=== PATIENT | female | born 1955 | race Caucasian/White ===

== ENCOUNTER 2017-12-01 21:57 | Inpatient (IN) ==
[2017-12-02] MEDS: *HR* OxyCODONE/APAP 10/325 TABLET PO PRN ×5 (01:04→22:11)
--- NOTE | 2017-12-02 01:14 | Internal Med History&Physical ---
Date of Encounter: 12/02/17 Time of Encounter: 00:57 Assessment and Plan (1) Fracture, intertrochanteric, left femur Current visit: Yes Status: Acute Dr Chapa was consulted, will have surgery today NPO Qualifiers: Encounter type: initial encounter Fracture type: closed Fracture alignment: displaced Qualified Code(s): S72.142A - Displaced intertrochanteric fracture of left femur, initial encounter for closed fracture (2) Pre-op evaluation Current visit: Yes Status: Acute 1. pre-op cardaic assessment: Patient has history of insulin-dependent diabetes and end-stage renal disease CHF with EF 50%, but she denies chest pain shortness of breasts was exertion. She had echocardiogram back to September 2015 shows EF 50% with mild LVH. Her revised cardiac risk index score 3, She is at risk of 5.4% for adverse cardiac events. Patient CHF is well compensated. We will reduce IV fluids late give a dose of Lasix due to hyperkalmeia 2. chronic hypoxic respiratory failure on 2 L nasal cannula at home. Patient denies history of smoking, no COPD history, likely for chronic CHF. Continue monitoring monitor O2 saturation preoperatively. 3. Hyperkalemia from end-stage renal disease, will give IV Lasix in the Will repeat in a.m. 4. Chest x-ray shows mild pleural effusion, EKG is pending (3) ESRD (end stage renal disease) Current visit: Yes Status: Acute Consult a administrative and program specialist for dialysis on Sunday (4) Chronic respiratory failure with hypoxia Current visit: Yes Status: Acute On 2 L nasal cannula for CHF (5) Diabetes mellitus Current visit: Yes Status: Acute Patient has insulin-dependent diabetes, will continue home insulin and on sliding scale Qualifiers: Diabetes mellitus type: type 2 Diabetes mellitus residential insulin use: with residential use Diabetes mellitus complication status: with other specified complication Qualified Code(s): E11.69 - Type 2 diabetes mellitus with other specified complication; Z79.4 - custodial (current) use of insulin; Z79.4 - moth exterminator (current) use of insulin; Z79.4 - custodial (current) use of insulin; Z79.4 - custodial (current) use of insulin (6) Hypertension Current visit: Yes Status: Acute Qualifiers: Hypertension type: essential hypertension Qualified Code(s): I10 - Essential (primary) hypertension (7) CHF (congestive heart failure) Current visit: Yes Status: Acute EF 50% 09/2015, currently denies paroxysmal nocturnal dyspnea, no JVD. We will compensated. Qualifiers: Heart failure type: combined systolic and diastolic Heart failure chronicity: chronic Qualified Code(s): I50.42 - Chronic combined systolic ( congestive) and diastolic (congestive) heart failure Internal Medicine - H&P: HPI Chief complaint: left hip fracture Admitted From: Home Plans for Post Hospital Care: [facility] History of present illness: Ms. Naqvi is a 62 year old female who has history of diabetes hypertension end-stage renal disease on dialysis Sunday. she presented to [place] to ER for left hip pain after fall. Patient has balance issues, walks with a cane, she lost of balance while she is walking from the kitchen to the family room, fell on the left side the hip at 5 PM yesterday afternoon. She denies loss of consciousness denies chest pain shortness of breath. She developed acute pain from left hip after fall, sharp, 10 out of 10, constant. She called her daughter and her daughter called EMS when EMS unreliable she was sitting in the floor complains left hip pain 10 out of 10 unable to stand, in the emergency room she was found left femoral neck fracture. Dr. Chapa was called and transferred to [facility] for surgery treatment today. Lab shows creatinine 5.4 to potassium 5.3, she is on 2 L nasal cannula for CHF. She has been making urine daily. Patient is admitted for left hip fracture, NPO. Past Med Surg Social Fam HX - Past Medical History Medical history: cancer, diabetes, dialysis, hypertension, renal disease Psychiatric history: no psych history - Social History Smoking Status: Never smoker Smokeless Tobacco Status: No Alcohol use: none Drug use: none - Family History Mother Adopted: [place]: Padmini Mujica Age: 63 Family Member Ethnicity: Non- Living Status: Age at : 63 Cause of : Heart issues Hx Family Cardiac Disorders: Yes (unknown) Hx Family Respiratory Disorders: Yes (COPD) Hx Family Cancer: No Hx Family GI Disorders: No Hx Family Genitourinary Disorders: No Hx Family Endocrine Disorder: Yes (DM) Hx Family Musculoskeletal Disorders: No Hx Family Neuromuscular Disorders: No Hx Family Neurologic Disorders: No Hx Family HEENT Disorders: No Hx Family Autoimmune Disorders: No Hx Family Reproductive Disorders: No Hx Family Psychosocial Disorders: No Hx Family Medical Disorders: No Internal Medicine - H&P: Meds RX: Aspirin Enteric Coated [Aspirin EC] 81 mg PO DAILY 05/21/15 [History] RX: Carvedilol [Coreg] 25 mg PO BID 05/21/15 [History] RX: Hydralazine HCl 50 mg PO TID 05/21/15 [History] RX: Insulin ASPART [NovoLOG] 0 unit SQ TIDWM MDD per sliding scale 05/21/15 [ History] RX: Isosorbide MONOnitrate [Isosorbide Mononitrate] 30 mg PO DAILY 05/21/15 [ History] RX: Ondansetron [Zofran] 8 mg PO TID PRN 05/21/15 [History] RX: OxyCODONE/APAP 5/325 [Percocet 5/325] 1 each PO Q6HR PRN 05/21/15 [History] RX: Pantoprazole Sodium 40 mg PO DAILY 05/21/15 [History] RX: Torsemide [Demadex] 20 mg PO DAILY 05/21/15 [History] RX: Sevelamer [Renvela] 800 mg PO TID 02/07/17 [History] 3 Allergy/AdvReac Type Severity Reaction Status Date / Time acetaminophen [From Vicodin] Allergy Itching Verified 02/07/17 12:32 hydrocodone [From Vicodin] Allergy Itching Verified 02/07/17 12:32 Warfarin [From Coumadin] AdvReac bleeding Verified 02/07/17 12:32 All Systems PM: A 10-system review of systems was performed and is negative for pertinent findings except as documented above in the HPI. - Constitutional Vitals: Temp Pulse Resp BP Pulse Ox 99.2 F 89 17 192/85 100 12/01/17 23:56 12/01/17 23:56 12/01/17 23:56 12/01/17 23:56 12/01/17 23:56 General appearance: Present: A&O X 3, pleasant Exam: CONSTITUTIONAL: Patient appears as an age appropriate female well developed, in no acute distress. EYES Clear sclerae, bilateral pupils are equal, reactive to light and accommodation. Extraocular movements are intact RESPIRATORY: No accessory muscle use, bilateral clear to auscultation, no wheezing, no crackles/rales. CARDIOVASCULAR: Regular heart rate, normal S1 and S2, no murmurs GASTROINTESTINAL: bowel sounds present, soft, no tenderness. No hepatosplenomegaly. No bilateral CVA tenderness MUSCULOSKELETAL: Joints in normal range of motion, no clubbing, no edema, no cyanosis. Bilateral peripheral pulses 2+ LYMPHATIC no lymphadenopathy in neck, groin and axilla bilaterally, no thyromegaly. NEUROLOGIC: CN II to XII are grossly intact, no focal neurological deficit. Deep tendon reflexes 2+ bilaterally. Normal light touch sensation to upper and lower extremity PSYCHIATRIC: Oriented x3, with good insight, mood is euthymic. No hallucinations or delusions. SKIN: Skin warm and dry, no rashes, no open wound.
[2017-12-02] MEDS ORDERED: Naloxone 0.4 MG/ML INJ IVP PRN (01:34)
[2017-12-02] MEDS ORDERED: 0.9 % Sodium Chloride 1,000 ML IVC SCH (01:45)
[2017-12-02] MEDS: Insulin LISPRO 300 UNITS/3 ML VIAL SQ SCH ×5 (02:01→22:11)
[2017-12-02] MEDS: Furosemide 40 MG/4 ML VIAL IVP SCH ×3 (02:13→20:28)
[2017-12-02] MEDS: *HR* Heparin 5,000 UNIT/ML VIAL SQ SCH ×2 (05:11→17:15)
[2017-12-02 06:02] LABS: Basophils % 0.7 %; Hematocrit 37.1 % (35.3-44.9); Hemoglobin 11.1 g/dL (11.5-15.4); Immature Granulocytes % 0.2 % (0-4); Mean Corpuscular HGB Conc 29.9 g/dL (31.6-35.5)
[2017-12-02 06:03] LABS: Eosinophils # 0.2 K/mcL (0.0-0.6); Eosinophils % 3.9 %; Immature Platelets 4.8 % (1.1-6.1); Lymphocytes # 0.8 K/mcL (0.6-4.6); Lymphocytes % 18.9 %; Mean Corpuscular Hemoglobin 29.8 pg (28.0-33.3); Mean Corpuscular Volume 99.5 fL (83.0-100.0); Mean Platelet Volume 12.1 fL (9.4-12.4); Monocytes # 0.3 K/mcL (0.0-1.3); Red Blood Count 3.73 M/mcL (3.82-4.97); Red Cell Distribution Width 14.9 % (11.5-14.5); Segmented Neutrophils % 70.3 %
[2017-12-02 06:05] LABS: Platelet Count 66 K/mcL (140-400)
[2017-12-02 06:21] LABS: Platelet Estimate Decreased (Normal); Reactive Lymphocytes Present (Not Present)
[2017-12-02 06:29] LABS: Potassium 4.9 mEq/L (3.5-5.1)
[2017-12-02] MEDS ORDERED: D5% in 0.45% NACL 1,000 ML IVC SCH (06:45)
--- NOTE | 2017-12-02 09:17 | Orthopedic Consult Note ---
Date of Encounter: 12/02/17 Time of Encounter: 09:15 Assessment and Plan (1) Intertrochanteric fracture of left hip Current Visit: Yes Status: Acute Discussed with the patient that I recommend doing a left hip intramedullary nailing. The risks, benefits and alternatives were discussed. Informed consent was obtained. Qualifiers: Encounter type: initial encounter Fracture type: closed Fracture alignment: nondisplaced Qualified Code(s): S72.145A - Nondisplaced intertrochanteric fracture of left femur, initial encounter for closed fracture History of Present Illness Chief complaint: Left hip pain HPI: Ms. Naqvi is a 62 year old female who lives at home and is a community ambulator. The patient was walking down a ramp between his living room kitchen last night, when she pivoted to walk back up the ramp, lost balance falling onto her left side. The patient denies dizziness prior to fall, and denies loss of consciousness after the fall. Patient's past medical history significant for end-stage renal disease on dialysis. She was last dialyzed on Sunday. Past Med Surg Social Fam HX - Past Medical History Medical history: cancer, diabetes, dialysis, hypertension, renal disease Psychiatric history: no psych history - Social History Smoking Status: Never smoker Smokeless Tobacco Status: No Alcohol use: none Drug use: none - Family History Mother Adopted: [place]: Padmini Mujica Age: 63 Family Member Ethnicity: Non- Living Status: Age at : 63 Cause of : Heart issues Hx Family Cardiac Disorders: Yes (unknown) Hx Family Respiratory Disorders: Yes (COPD) Hx Family Cancer: No Hx Family GI Disorders: No Hx Family Genitourinary Disorders: No Hx Family Endocrine Disorder: Yes (DM) Hx Family Musculoskeletal Disorders: No Hx Family Neuromuscular Disorders: No Hx Family Neurologic Disorders: No Hx Family HEENT Disorders: No Hx Family Autoimmune Disorders: No Hx Family Reproductive Disorders: No Hx Family Psychosocial Disorders: No Hx Family Medical Disorders: No Medications and Allergies Aspirin Enteric Coated [Aspirin EC] 81 mg PO DAILY 05/21/15 [History] Carvedilol [Coreg] 25 mg PO BID 05/21/15 [History] Insulin ASPART [NovoLOG] 3 - 7 unit SQ TIDWM MDD per sliding scale 05/21/15 [ History] Ondansetron [Zofran] 8 mg PO TID PRN 05/21/15 [History] OxyCODONE/APAP 5/325 [Percocet 5/325] 1 each PO Q6HR PRN 05/21/15 [History] Pantoprazole Sodium 40 mg PO DAILY 05/21/15 [History] Torsemide [Demadex] 20 mg PO DAILY 05/21/15 [History] Sevelamer [Renvela] 1,600 mg PO TIDWM 02/07/17 [History] 3 Allergy/AdvReac Type Severity Reaction Status Date / Time acetaminophen [From Vicodin] Allergy Itching Verified 02/07/17 12:32 heparin Allergy See Verified 12/02/17 10:52 Comments hydrocodone [From Vicodin] Allergy Itching Verified 02/07/17 12:32 All Systems Reviewed: The remainder of the systems were reviewed and are negative Physical Exam - Constitutional Vitals: Temp Pulse Resp BP Pulse Ox 98.3 F 77 15 164/79 100 12/02/17 07:05 12/02/17 07:05 12/02/17 07:05 12/02/17 07:05 12/02/17 08:27 General appearance IM: A&O X 3, pleasant, no acute distress, answers questions appropriately Exam: Head normocephalic/atraumatic Neck supple, nontender Bilateral upper extremities: Normal range of motion, no bruising no tenderness. Patient has AV fistula and left antecubital fossa with positive thrill. Right lower extremity: Normal exam with normal range of motion Left lower extremity: Shortened externally rotated, positive tenderness and groin region, painful range of motion of the hip, patient able to dorsiflex and plantarflex the ankle and toes, 2 toes amputated, dorsalis pedis pulses 2+, sensation was intact Results - Labs Result Diagrams: 12/02/17 04:56 12/02/17 04:56 Labs: Abnormal lab results RBC 3.73 M/mcL (3.82-4.97) L 12/02/17 04:56 Hgb 11.1 g/dL (11.5-15.4) L 12/02/17 04:56 MCHC 29.9 g/dL (31.6-35.5) L 12/02/17 04:56 RDW 14.9 % (11.5-14.5) H 12/02/17 04:56 Plt Count 66 K/mcL (140-400) L 12/02/17 04:56 Reactive Lymphocytes Present (Not Present) A 12/02/17 04:56 Platelet Estimate Decreased (Normal) L 12/02/17 04:56 BUN 60 mg/dL (8-23) H 12/02/17 04:56 Creatinine 5.36 mg/dL (0.60-1.20) H 12/02/17 04:56 Est GFR ( Amer) 10 (> 60) L 12/02/17 04:56 Est GFR (Non-Af Amer) 8 (> 60) L 12/02/17 04:56 Glucose 121 mg/dL (70-105) H 12/02/17 04:56 POC Glucose 104 (58-89) H 12/02/17 06:16 Calculated Osmolality 302 (280-300) H 12/02/17 04:56 B-Natriuretic Peptide 318 pg/mL (Less than 100) H 12/02/17 04:56 H & H 12/02/17 Range/Units 04:56 Hgb 11.1 L (11.5-15.4) g/dL Hct 37.1 (35.3-44.9) % All other labs normal. - Diagnostic results Hip x-ray: image reviewed (Left hip intertrochanteric fracture) Consult Discharge Plan - Plan Referrals: Juan Daniel Conklin MD [Primary Care Provider] -
[2017-12-02] MEDS: Isosorbide MONOnitrate (24 HR) 30 MG TAB.ER.24H PO SCH (10:15)
--- NOTE | 2017-12-02 11:01 | Nephrology Consult Note ---
Date of Encounter: 12/02/17 Time of Encounter: 10:20 Assessment and Plan (1) ESRD (end stage renal disease) Current Visit: Yes Status: Chronic ESRD on HD M/W/ with next HD tentatively planned for tomorrow AM. No urgent needs for HD today. Mitchell plan for HD on Sunday. (2) History of hyperkalemia Current Visit: Yes Status: Chronic 4.9, so acceptable today. Whenever her diet is advanced, please make sure that it is a low potassium (i.e. Renal) diet. (3) Hypoalbuminemia Current Visit: Yes Status: Chronic Hx of chronic hypoalbuminemia: would recommend adding protein shakes such as Nephro with each meal. (4) Anemia of chronic renal failure, stage 5 Current Visit: Yes Status: Chronic Goal Hgb 10-11. Will monitor. (5) Fracture, intertrochanteric, left femur Current Visit: Yes Status: Acute Appreciate surgery. Qualifiers: Encounter type: initial encounter Fracture type: closed Fracture alignment: displaced Qualified Code(s): S72.142A - Displaced intertrochanteric fracture of left femur, initial encounter for closed fracture (6) Hypertension Current Visit: Yes Status: Chronic Qualifiers: Hypertension type: essential hypertension Qualified Code(s): I10 - Essential (primary) hypertension History of Present Illness - Reason for Consult Consult date: 12/02/17 end stage renal disease Requesting physician: Keagan Roper - Chief Complaint ESRD - History of Present Illness Josi Naqvi is an extremely pleasant and kind 62 y/o female with a pmh of DM, HTN, ESRD on HD M/W/, frequent hyperkalemia, prior pleural effusions, and et al who presented with a left hip fracture. I am her primary rn documentation specialist. She last completed on HD on Sunday, she and her two daughters affirmed. She was recently , but her before he had made a ramp from her room into the kitchen, and she said that yesterday, she lost her balance and fell from standing height. She did not affirm N/V/D or dysuria or chest pain. She said that she was breathing comfortably. She said that she had not yet eating this AM, since she was going for hip surgery today (Sunday). Past Med Surg Social Fam HX - Past Medical History Medical history: cancer, diabetes, dialysis, hypertension, renal disease Psychiatric history: no psych history - Social History Smoking Status: Never smoker Smokeless Tobacco Status: No Alcohol use: none Drug use: none - Family History Mother Adopted: [place]: Padmini Mujica Age: 63 Family Member Ethnicity: Non- Living Status: Age at : 63 Cause of : Heart issues Hx Family Cardiac Disorders: Yes (unknown) Hx Family Respiratory Disorders: Yes (COPD) Hx Family Cancer: No Hx Family GI Disorders: No Hx Family Genitourinary Disorders: No Hx Family Endocrine Disorder: Yes (DM) Hx Family Musculoskeletal Disorders: No Hx Family Neuromuscular Disorders: No Hx Family Neurologic Disorders: No Hx Family HEENT Disorders: No Hx Family Autoimmune Disorders: No Hx Family Reproductive Disorders: No Hx Family Psychosocial Disorders: No Hx Family Medical Disorders: No Medications and Allergies Aspirin Enteric Coated [Aspirin EC] 81 mg PO DAILY 05/21/15 [History] Carvedilol [Coreg] 25 mg PO BID 05/21/15 [History] Insulin ASPART [NovoLOG] 3 - 7 unit SQ TIDWM MDD per sliding scale 05/21/15 [ History] Ondansetron [Zofran] 8 mg PO TID PRN 05/21/15 [History] OxyCODONE/APAP 5/325 [Percocet 5/325] 1 each PO Q6HR PRN 05/21/15 [History] Pantoprazole Sodium 40 mg PO DAILY 05/21/15 [History] Torsemide [Demadex] 20 mg PO DAILY 05/21/15 [History] Sevelamer [Renvela] 1,600 mg PO TIDWM 02/07/17 [History] 3 Allergy/AdvReac Type Severity Reaction Status Date / Time acetaminophen [From Vicodin] Allergy Itching Verified 02/07/17 12:32 heparin Allergy See Verified 12/02/17 10:52 Comments hydrocodone [From Vicodin] Allergy Itching Verified 02/07/17 12:32 Review of Systems All Systems: reviewed and no additional remarkable complaints except as stated Exam - Vital Signs Vital signs: Initial Vital Signs Temp Pulse Resp BP Pulse Ox 99.2 F 89 17 192/85 100 12/01/17 23:56 12/01/17 23:56 12/01/17 23:56 12/01/17 23:56 12/01/17 23:56 Vital Signs - Last 8 Hours Temp Pulse Resp BP Pulse Ox 12/02/17 10:42 98.1 F 72 18 165/82 100 12/02/17 08:27 100 12/02/17 07:05 98.3 F 77 15 164/79 100 12/02/17 04:20 98.5 F 82 16 169/83 100 Intake and Output 12/01/17 12/02/17 12/02/17 23:59 07:59 15:59 Intake Total 0 / 0 Output Total 125 / 125 125 / 125 Balance -125 / -125 -125 / -125 Intake: Oral 0 / 0 Output: Catheter 125 / 125 125 / 125 Other: Weight 75.8 kg Blood Glucose* 104 93 Patient Weight 12/02/17 23:59 Weight 75.8 kg - General Appearance General appearance: well-developed, well-nourished, appears started age, chronically ill EENT: ATNC, PERRL, mucous membranes moist Neck: supple Respiratory: clear (but slightly diminished in the bases) Cardiology: no edema, regular rate, regular rhythm, normal S1, normal S2 - Dialysis Access Dialysis Vascular Access: Arteriovenous Fistula (left) thrill: Yes bruit: Yes Gastrointestinal: normoactive bowel sounds, no tenderness Integumentary: warm and dry Neurologic: no focal deficit, no asterixis, alert and oriented x3 Psychiatric: mood/affect appropriate, cooperative Results - Lab Results 12/02/17 04:56 12/02/17 04:56 Most recent lab results Calcium 9.0 mg/dL (8.6-10.3) 12/02/17 04:56 I reviewed the labs, meds, vitals, imaging and progress notes. Consult Discharge Plan - Plan Referrals: Juan Daniel Conklin MD [Primary Care Provider] -
[2017-12-02] MEDS ORDERED: ROPIVACAINE HCL/PF 0.5% 30 ML VIAL ONE ×2 (12:25→12:31)
--- NOTE | 2017-12-02 12:28 | Anesthesia Evaluation PreOp ---
Date of Encounter: 12/02/17 Time of Encounter: 12:25 - Past History Planned Operation: Left Hip Nailing Cardiac History: HTN, Hyperlipidemia, Other (Anemia of chronic disease) Pulmonary History: COPD CREDIT CARD ANALYST History: Denies Any Significant HX Other Medical History: Renal (ESRD last dialyzed 2 days ago), Diabetes Type II Anesthesia History: No Prior Anesthetic Complications : No Alcohol Use: none Drug use: none Medications and Allergies Aspirin Enteric Coated [Aspirin EC] 81 mg PO DAILY 05/21/15 [History] Carvedilol [Coreg] 25 mg PO BID 05/21/15 [History] Insulin ASPART [NovoLOG] 3 - 7 unit SQ TIDWM MDD per sliding scale 05/21/15 [ History] Ondansetron [Zofran] 8 mg PO TID PRN 05/21/15 [History] OxyCODONE/APAP 5/325 [Percocet 5/325] 1 each PO Q6HR PRN 05/21/15 [History] Pantoprazole Sodium 40 mg PO DAILY 05/21/15 [History] Torsemide [Demadex] 20 mg PO DAILY 05/21/15 [History] Sevelamer [Renvela] 1,600 mg PO TIDWM 02/07/17 [History] 3 Allergy/AdvReac Type Severity Reaction Status Date / Time acetaminophen [From Vicodin] Allergy Itching Verified 02/07/17 12:32 heparin Allergy See Verified 12/02/17 10:52 Comments hydrocodone [From Vicodin] Allergy Itching Verified 02/07/17 12:32 - Meds/Allergy Pre-op Review Medications Reviewed: Yes Allergies Reviewed: Yes Beta Blockers on Current Med List: No Anesthesia Results - Labs 12/02/17 04:56 12/02/17 04:56 - Imaging EKG: report reviewed (SB) Additional studies: LVEF 50% Anesthesia Exam O2 Sat Height 1.65 m Weight 75.8 kg O2 Sat by Pulse Oximetry 100 O2 Sat by Pulse Oximetry 100 O2 Sat by Pulse Oximetry 100 O2 Sat by Pulse Oximetry 100 O2 Sat by Pulse Oximetry 100 Vital Signs Temp Pulse Resp BP Pulse Ox 99.2 F 89 17 192/85 100 12/01/17 23:56 12/01/17 23:56 12/01/17 23:56 12/01/17 23:56 12/01/17 23:56 Height: 5'5 Weight: 167 lbs NPO (# of Hours): MN Pain Scale: 1 - HEENT Pupil (Motor): Pupils equal, EOMI Mallampati: III Teeth: Edentulous Oral Opening: Less than or equal to 3 - CREDIT CARD ANALYST LOC: Oriented CREDIT CARD ANALYST Motor: Normal RUE, Normal LUE, Normal RLE, Normal LLE, Normal Face CREDIT CARD ANALYST Sensory: Normal: RUE, LUE, RLE, LLE, Face - Cardiac Rhythm: Regular Murmur: None JVD: No Carotid Bruit: No - Pulmonary Breath Sounds: bilateral Clear Respiratory Effort: Symmetrical Anesthesia Assess/Plan ASA Score: 4 (ESRD HTN DM) Modified Brina Scale for Level of Consciousness: Cooperative, oriented, and tranquil Anesthetic Plan: General, Regional Monitoring Plan: Standard Monitors Recovery Plan: PACU (Discussed GA and RA, agrees to proceed)
[2017-12-02] MEDS ORDERED: *HR* FentaNYL (PF) 100 MCG/2 ML VIAL ONE (12:33)
[2017-12-02] MEDS ORDERED: Lidocaine -MPF 2% 2 ML VIAL ONE (13:01)
[2017-12-02] MEDS ORDERED: *HR* Propofol 200 MG/20 ML VIAL IVP ONE (13:01)
[2017-12-02] MEDS ORDERED: *HR* Succinylcholine 200 MG/10 ML VIAL IVP ONE (13:16)
[2017-12-02] MEDS ORDERED: EPHEDrine 50 MG/ML VIAL ONE (13:34)
[2017-12-02] MEDS ORDERED: CeFAZolin Syr 2,000MG/20 ML 2,000 MG/20 ML SYRINGE IVPB ONE (14:11)
--- NOTE | 2017-12-02 14:40 | Anesthesia Procedures ---
Date of Encounter: 12/02/17 Time of Encounter: 12:25 Procedures: Anesthesia - Nerve Block Procedure Date: 12/02/17 Time: 12:45 Pre-op Diagnosis: Fracture Left Hip Surgical Procedure: IM Nailing Left Hip Checklist: Correct Patient Identifier Correct side: Left Blood Thinner: Yes Monitor Applied: EKG, BP, Pulse Oximetry Indication: Post Op Analgesia Pre-op Neuro Deficits: No Block Type: Other (Fascia Iliaca) Catheter placed: No Sterile Technique: Yes Ultrasound used: Yes Anatomy identified: Yes Visual spread of Local: Yes Blood on Needle Aspiration: No Smooth Injection of Local: Yes Pain with Injection of Local: No Prep: Chlorhexadine Needle: 22 x 50 mm Stimuplex Local: Ropivacaine (0.20%) Volume (cc): 60 Number of Attempts: 1 Complications: None/effective block
--- NOTE | 2017-12-02 15:26 | Anesthesia Evaluation Post Op ---
Date of Encounter: 12/02/17 Time of Encounter: 15:20 - Vital Signs Vital Signs: Vital Signs/O2 Sat/Glucose, Most Current Temp Pulse Resp BP Pulse Ox 12/02/17 15:18 98.4 F 68 16 138/72 100 12/02/17 15:08 97.8 F 69 16 153/76 100 12/02/17 14:58 97.8 F 68 16 148/76 98 12/02/17 14:48 97.8 F 68 10 137/66 98 - Lungs Lungs: Clear Ascult./Percussion - Airway Airway: Non-obstructed - Cardiovascular Regular Rate - Mental Status Mental Status: Alert & Oriented, Answers Appropriately - Pain Pain Scale: 0 - Nausea Vomiting Nausea Vomiting: Not Present - Hydration Hydration: Ice chips - Discharge PostOp Status: Transfer Patient to floor
[2017-12-02] MEDS ORDERED: *HR* FentaNYL (PF) 100 MCG/2 ML VIAL IVP PRN (16:04)
--- NOTE | 2017-12-02 16:31 | Internal Med Progress Note ---
<Lowell Camacho - Last Filed: 12/02/17 16:29> Date of Encounter: 12/02/17 Time of Encounter: 16:29 - Assessment and plan (1) Fracture, intertrochanteric, left femur Current Visit: Yes Status: Acute Assessment and plan: s/p ORIF today without complication The patient's pain has been well controlled We will continue to monitor pain PT/OT consultation pending SQ Heparin for high risk DVT prophylaxis Qualifiers: Encounter type: initial encounter Fracture type: closed Fracture alignment: displaced Qualified Code(s): S72.142A - Displaced intertrochanteric fracture of left femur, initial encounter for closed fracture (2) Chronic respiratory failure with hypoxia Current Visit: Yes Status: Acute Assessment and plan: Chronic respiratory failure with hypoxia Continue to titrate O2 to SPO2 >88 Home O2 2L (3) ESRD (end stage renal disease) Current Visit: Yes Status: Chronic Assessment and plan: ESRD with HD MWF Nephrology has been consulted, will follow Dialysis orders per nephrology (4) Diabetes mellitus Current Visit: Yes Status: Acute Assessment and plan: 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 Continue home insulin regimen with SSI Qualifiers: Diabetes mellitus type: type 2 Diabetes mellitus long-term insulin use: with long-term use Diabetes mellitus complication status: with other specified complication Qualified Code(s): E11.69 - Type 2 diabetes mellitus with other specified complication; Z79.4 - intermediate teacher (current) use of insulin; Z79.4 - intermediate teacher (current) use of insulin; Z79.4 - alf (current) use of insulin; Z79.4 - intermediate teacher (current) use of insulin (5) CHF (congestive heart failure) Current Visit: Yes Status: Acute Assessment and plan: Heart failure with reduced ejection fraction TTE 07/02 shows LVEF 50% with mild LVH and indeterminate diastolic dysfunction On Carvedilol, Lasix, Imdur There is some mild b/l LE edema on exam, no significant fluid overload Patient is on torsemide at home, we will diurese with IV Lasix Strict I/Os, fluid restrict 1500mL Qualifiers: Heart failure type: combined systolic and diastolic Heart failure chronicity: chronic Qualified Code(s): I50.42 - Chronic combined systolic ( congestive) and diastolic (congestive) heart failure (6) Hypertension Current Visit: Yes Status: Acute Assessment and plan: Well controlled HTN Continue home meds Qualifiers: Hypertension type: essential hypertension Qualified Code(s): I10 - Essential (primary) hypertension (7) DVT prophylaxis Current Visit: Yes Status: Acute Assessment and plan: SQ Heparin - Subjective Interval history: The patient is s/p ORIF today. She described the fall to me as mechanical in nature. She was walking down the stairs with her cane and she lost her balance and fell backward. She said that she did not hit her head, and she did not lose consciousness.She has not had many falls in the past, however she does say she' s been getting dizzy more often. She denies other acute concerns at this time. - Constitutional Vitals: Temp Pulse Resp BP Pulse Ox 98 F 70 16 166/95 100 12/02/17 16:27 12/02/17 16:27 12/02/17 16:27 12/02/17 16:27 12/02/17 16:27 General appearance: Present: A&O X 3, pleasant Exam: Gen.: Vitals noted. No acute distress. AAOx3 HEENT: PERRL/EOMI, oropharynx clear, Normocephalic, atraumatic Neck: Supple. No adenopathy. Cardiac: RRR, 1/6 systolic murmur that's been previously documented, +S1/S2 Pulmonary: CTA bilaterally, no wheezes, rales or rhonchi, equal chest expansion Abdomen: soft, nontender, BS noted, no guarding MSK: ROM intact, no joint swelling noted. S/p left hip repair. Muscle strength intact distally, pulses present Extremities: no BLE edema, nontender calf, no cyanosis or clubbing Neuro: A&Ox3, moves all extremities, no focal deficits Psych: Appropriate mood and behavior Internal Medicine: Result - Labs CBC & Chem 7: 12/02/17 04:56 12/02/17 04:56 Labs: Short CBC 12/02/17 Range/Units 04:56 WBC 4.3 (4.3-11.1) K/mcL Hgb 11.1 L (11.5-15.4) g/dL Hct 37.1 (35.3-44.9) % Plt Count 66 L (140-400) K/mcL Neutrophils # 3.0 (1.6-8.9) K/mcL BMP 12/02/17 04:56 Sodium 137 Potassium 4.9 Chloride 100 Carbon Dioxide 27 BUN 60 H Creatinine 5.36 H Glucose 121 H Calcium 9.0 - Impressions Impressions Fluoroscopy 12/02/17 00:00 IMPRESSION: Intraprocedural fluoroscopic spot images as above. See separate procedure report for more information. D/ : / 12/02/2017 15:21:46 Cristina Varma MD / Myah May Interpreting Provider: Cristina Varma MD Hip X-Ray 12/02/17 00:00 IMPRESSION: Intraprocedural fluoroscopic spot images as above. See separate procedure report for more information. D/ 12/02/2017 15:21:46 Cristina Varma MD / Myah May Interpreting Provider: Cristina Varma MD - VTE Documentation of Mechanical Device: Intermittent pneumatic compression device Consult Discharge Plan - Plan Referrals: Juan Daniel Conklin MD [Primary Care Provider] - <Katlin Morales - Last Filed: 12/02/17 18:23> Date of Encounter: 12/02/17 - Constitutional Vitals: Temp Pulse Resp BP Pulse Ox 98.2 F 68 14 118/73 100 12/02/17 18:06 12/02/17 18:06 12/02/17 18:06 12/02/17 18:06 12/02/17 18:11 Internal Medicine: Result - Labs CBC & Chem 7: 12/02/17 04:56 12/02/17 04:56 Labs: Short CBC 12/02/17 Range/Units 04:56 WBC 4.3 (4.3-11.1) K/mcL Hgb 11.1 L (11.5-15.4) g/dL Hct 37.1 (35.3-44.9) % Plt Count 66 L (140-400) K/mcL Neutrophils # 3.0 (1.6-8.9) K/mcL BMP 12/02/17 04:56 Sodium 137 Potassium 4.9 Chloride 100 Carbon Dioxide 27 BUN 60 H Creatinine 5.36 H Glucose 121 H Calcium 9.0 - Impressions Impressions Fluoroscopy 12/02/17 00:00 IMPRESSION: Intraprocedural fluoroscopic spot images as above. See separate procedure report for more information. D/ / 12/02/2017 15:21:46 Cristina Varma MD / Myah May Interpreting Provider: Cristina Varma MD Hip X-Ray 12/02/17 00:00 IMPRESSION: Intraprocedural fluoroscopic spot images as above. See separate procedure report for more information. D/ / 12/02/2017 15:21:46 Cristina Varma MD / Myah May Interpreting Provider: Cristina Varma MD - Attending Attestation I examined this patient and my medical decision-making was reviewed with the Resident Physician Dr. Camacho. I agree with the documented findings, disposition and treatment plan as described except to the extent set forth below. Ms. Naqvi is a 62 year old female who has history of diabetes hypertension end-stage renal disease on dialysis Sunday. she presented to [facility] to ER for left hip pain after fall. Patient has balance issues, walks with a cane, she lost of balance while she is walking from the kitchen to the family room, fell on the left side the hip at 5 PM yesterday afternoon. She denies loss of consciousness denies chest pain shortness of breath. she was found left femoral neck fracture. She just came back from surgery. Gen: A,A, O x3 Chest: Dimisnihes BS b/l No crackles Heart: S1S2+ RRR Abd: Soft, NT, BS + Ext: Moderate swelling and tenderness in Left Hip a.p 1. Acute Left hip fx s/p ORIF cont post op care as per ortho Heparin for DVT prophylaxis 2. ESRD on HD Nephro consulted
--- NOTE | 2017-12-02 17:32 | Operative Note ---
Date of procedure: 12/02/17 Pre-op diagnosis: Left hip intertrochanteric fracture Post-op diagnosis: same Procedure: Left hip intramedullary nailing Implants: [place] gamma nail Anesthesia: TEEA Surgeon: Rusty Chapa Was there an or assistant present: No Estimated blood loss (cc): 200 Specimen: 0 Condition: stable Disposition: PACU Procedure in Detail: The patient received IV antibiotics in the holding area. She was brought to the operating room, sign in was performed. The patient underwent general anesthesia on the hospital bed. She was then transferred to the fracture table in supine position. The patient was positioned with the support groin post, the affected left lower extremity in the traction pichardo and the contralateral lower extremity in a well-padded limb pichardo with a hip flexed and abducted out of the way. While positioning the right lower extremity, I tried into the rotating the hip and there was an audible crack. Fluoroscopy was then brought in. The right hip was examined under fluoroscopy and no fracture lines was seen. Moving to the left hip, the fracture was visualized, and the fracture reduced. We checked on AP and true lateral view of the hip. Once satisfactory the left hip, from the pelvis down to the knee, was prepped and draped in usual sterile fashion. A timeout was performed. The level of the greater trochanter was palpated, a 4-5 cm oblique incision was made just proximally, , followed by Bovie dissection. The hip abductor was sharply split in line with its fibers with a curved Christian scissors. The tip of the greater trochanter was palpable. A curved awl was then positioned on the tip. Its position was checked on fluoroscopy, slightly advanced, and we checked the lateral view. Once appropriately positioned, the aggressive awl was then used to open the proximal femur down to level of the lesser trochanter. A short gamma nail with 125 degree neck angle, 10 mm diameter, was assembled, and appropriately inserted into the proximal femur. The appropriate level was checked under fluoroscopy. The trochars were placed in the jig at 125 degree neck angle was then positioned against the skin, and the radiolucent guide was used to assist in positioning. Once satisfactory a 2.5 cm incision was made, the fascia was bluntly split along with the muscle fibers of the vastus lateralis. The triple trocar was advanced up against the lateral cortex. The guidepin was then driven up into the femoral head, checking AP and lateral views. A 95 mm length lag screw was chosen. Overdrilled the guidewire, and the lag screw was inserted over the guidewire. Once close to the edge of the femoral head, the T-handled was held parallel to the nail. The setscrew was then positioned but not fully tightened. Traction was then taken off the leg, and the fracture compressed. The setscrew was fully tightened at the top, and then backed off a quarter turn to allow the lag screw to slide if needed. The triple trochars for the distal static locking screw were placed in the jig, a 1 cm longitudinal incision was made. The trochars were advanced to the cortex , and drilled across. The depth was measured and a 37.5 mm by 5 mm bicortical screw was placed. All trochars and jig were removed. Final fluoroscopy shots were taken and saved showing good AP and lateral views of the hip and also distally at the tip of the nail. The wounds were irrigated with normal saline. Fascia over the abductors was closed with 1 Vicryl [id number] stitches, including the deep subcutaneous fat layer. Subcutaneous tissues were closed with 2-0 Vicryl, and the skin incisions were closed with dionisio. Sterile dressings were applied. The patient was transferred to hospital bed where she was extubated and taken to recovery room in stable condition.
[2017-12-02] MEDS: CeFAZolin Premix DUPLEX 2,000 MG/50 ML BAG IVPB SCH (20:27)
[2017-12-03] MEDS: CeFAZolin Premix DUPLEX 2,000 MG/50 ML BAG IVPB SCH (04:41)
[2017-12-03] MEDS: *HR* OxyCODONE/APAP 10/325 TABLET PO PRN ×3 (04:41→20:56)
[2017-12-03] MEDS: *HR* Heparin 5,000 UNIT/ML VIAL SQ SCH ×2 (04:55→17:09)
[2017-12-03] MEDS ORDERED: *HR* Enoxaparin 30 MG/0.3 ML SYRINGE SQ SCH (06:00)
[2017-12-03 06:37] LABS: Hemoglobin 9.9 g/dL (11.5-15.4)
[2017-12-03 06:40] LABS: Basophils % 0.2 %; Hematocrit 33.1 % (35.3-44.9); Immature Granulocytes % 0.5 % (0-4); Immature Platelets 8.8 % (1.1-6.1); Lymphocytes # 0.5 K/mcL (0.6-4.6); Lymphocytes % 8.3 %; Mean Corpuscular HGB Conc 29.9 g/dL (31.6-35.5); Mean Corpuscular Hemoglobin 29.6 pg (28.0-33.3); Mean Corpuscular Volume 98.8 fL (83.0-100.0); Mean Platelet Volume 12.2 fL (9.4-12.4); Monocytes # 0.3 K/mcL (0.0-1.3); Monocytes % 4.1 %; Red Blood Count 3.35 M/mcL (3.82-4.97); Red Cell Distribution Width 14.8 % (11.5-14.5); Segmented Neutrophils % 86.9 %
[2017-12-03 06:44] LABS: Neutrophils # 5.6 K/mcL (1.6-8.9); Platelet Count 90 K/mcL (140-400)
[2017-12-03 06:46] LABS: Calcium 9.3 mg/dL (8.6-10.3); Potassium 6.3 mEq/L (3.5-5.1)
[2017-12-03] MEDS ORDERED: 0.9 % Sodium Chloride 250 ML IVC PRN (07:23)
[2017-12-03] MEDS: Insulin LISPRO 300 UNITS/3 ML VIAL SQ SCH ×4 (08:20→23:02)
[2017-12-03] MEDS: Isosorbide MONOnitrate (24 HR) 30 MG TAB.ER.24H PO SCH (08:48)
[2017-12-03] MEDS: Furosemide 40 MG/4 ML VIAL IVP SCH ×2 (08:48→20:58)
[2017-12-03] MEDS ORDERED: 0.9 % Sodium Chloride 1,000 ML ONE (10:35)
[2017-12-03] MEDS ORDERED: Albumin 25% 12.5gm/50mL 25.0 GM/100 ML IV.SOLN ONE (10:35)
[2017-12-03 10:43] LABS: Hepatitis B Surface Antigen Nonreactive (Nonreactive)
[2017-12-03 10:45] LABS: Hepatitis B Surface Antibody 114.71 mIU/mL
--- NOTE | 2017-12-03 10:50 | Internal Med Progress Note ---
<NewBimal - Last Filed: 12/03/17 16:13> Date of Encounter: 12/03/17 Time of Encounter: 08:49 - Assessment and plan (1) Fracture, intertrochanteric, left femur Current Visit: Yes Status: Acute Assessment and plan: -POD 2 ORIF without complication -Pain well controlled at this time -Patient has been seen by physical therapy -SQ Heparin for high risk DVT prophylaxis Qualifiers: Encounter type: initial encounter Fracture type: closed Fracture alignment: displaced Qualified Code(s): S72.142A - Displaced intertrochanteric fracture of left femur, initial encounter for closed fracture (2) Chronic respiratory failure with hypoxia Current Visit: Yes Status: Acute Assessment and plan: -Chronic respiratory failure with hypoxia -Continue to titrate O2 to SPO2 >88 -Home O2 2L (3) ESRD (end stage renal disease) Current Visit: Yes Status: Chronic Assessment and plan: -ESRD with HD MWF -Nephrology has been consulted, will follow -Patient received dialysis today (4) Diabetes mellitus Current Visit: Yes Status: Acute Assessment and plan: -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 -Continue home insulin regimen with SSI Qualifiers: Diabetes mellitus type: type 2 Diabetes mellitus moth exterminator insulin use: with senior living use Diabetes mellitus complication status: with other specified complication Qualified Code(s): E11.69 - Type 2 diabetes mellitus with other specified complication; Z79.4 - FDC (current) use of insulin; Z79.4 - FDC (current) use of insulin; Z79.4 - moth exterminator (current) use of insulin; Z79.4 - FDC (current) use of insulin (5) CHF (congestive heart failure) Current Visit: Yes Status: Acute Assessment and plan: -HF with reduced ejection fraction -ECHO on 07/02 demonstrated LVEF 50% w/ mild LVH and indeterminate diastolic dysfunction -On Carvedilol, Lasix, Imdur -Strict I/Os, fluid restrict 1500mL Qualifiers: Heart failure type: combined systolic and diastolic Heart failure chronicity: chronic Qualified Code(s): I50.42 - Chronic combined systolic ( congestive) and diastolic (congestive) heart failure (6) Hypertension Current Visit: Yes Status: Chronic Assessment and plan: -Well controlled HTN -Continue home meds Qualifiers: Hypertension type: essential hypertension Qualified Code(s): I10 - Essential (primary) hypertension (7) DVT prophylaxis Current Visit: Yes Status: Acute Assessment and plan: -SQ Heparin 5000 Q12 - Subjective Interval history: 62-year-old female. Presented to [facility] ER for left hip pain after fall. Patient has no history of balance issues, walks with a cane. Lost her balance while she was walking from the kitchen to family room. She fell on the left side of her head. Denies having any loss of consciousness. In the ER, she was found to have a left femoral neck fracture. Dr. Arechiga was called; patient was transferred to [place] for surgical treatment. On 12/02/17, patient underwent left hip intramedullary nailing. Patient was seen by physical therapy; recommends continuing physical therapy during hospital stay for noted deficits. Was unable to ambulate on her own. On discharge, they [facility] to improve her safety and independence with mobility in order for her to return home alone. Patient was seen and examined in dialysis this morning. Patient is POD 2 of ORIF. She states that her pain is currently well controlled. Was seen by physical therapy earlier; states that she hasnt been able to move around as much as she would like. Denies any paresthesia. Endorses some pain in her hip , exacerbated by motion. She has no further complaints at this time. - Constitutional Vitals: Temp Pulse Resp BP Pulse Ox 98.0 F 61 18 119/74 96 12/03/17 06:53 12/03/17 06:53 12/03/17 06:53 12/03/17 06:53 12/03/17 06:53 General appearance: Present: A&O X 3, pleasant - Head Head exam: Present: atraumatic, normocephalic - Eye Eye exam: Present: PERRL, conjuntiva pink, sclera anicteric Pupils: Present: PERRL - Neck Neck exam general surgery: Present: supple, trachea midline. Absent: lymphadenopathy - Respiratory Respiratory exam: Present: CTAB. Absent: accessory muscle use, rales, rhonchi, wheezes - Cardiovascular Cardiovascular exam: Present: RRR, +S1, +S2. Absent: diastolic murmur, gallop, rubs, systolic murmur - Extremities Exam Extremities exam: Present: warm, radial pulses palpable and symmetrical. Absent : calf tenderness, cyanotic, pedal edema - Neurological Exam Neurological exam: Present: CN II-XII intact, oriented X3, no focal deficits. Absent: pronater drift, facial droop, speech deficit - Skin Skin exam: Present: dry, intact Internal Medicine: Result - Labs CBC & Chem 7: 12/03/17 04:45 12/03/17 04:45 Labs: Short CBC 12/03/17 Range/Units 04:45 WBC 6.4 (4.3-11.1) K/mcL Hgb 9.9 L (11.5-15.4) g/dL Hct 33.1 L (35.3-44.9) % Plt Count 90 L (140-400) K/mcL Neutrophils # 5.6 (1.6-8.9) K/mcL BMP 12/03/17 04:45 Sodium 134 L Potassium 6.3 H D Chloride 98 Carbon Dioxide 26 BUN 75 H Creatinine 6.02 H Glucose 142 H Calcium 9.3 - Impressions Impressions Fluoroscopy 12/02/17 00:00 IMPRESSION: Intraprocedural fluoroscopic spot images as above. See separate procedure report for more information. D/ / 12/02/2017 15:21:46 Cristina Varma MD / Myah May Interpreting Provider: Cristina Varma MD Hip X-Ray 12/02/17 00:00 IMPRESSION: Intraprocedural fluoroscopic spot images as above. See separate procedure report for more information. D/ / 12/02/2017 15:21:46 Cristina Varma MD / Myah May Interpreting Provider: Cristina Varma MD - VTE Documentation of Mechanical Device: Intermittent pneumatic compression device Consult Discharge Plan - Plan Referrals: Juan Daniel Conklin MD [Primary Care Provider] - <Munir Chan - Last Filed: 12/03/17 17:53> Date of Encounter: 12/03/17 - Constitutional Vitals: Temp Pulse Resp BP Pulse Ox 97.7 F 82 18 143/70 100 12/03/17 14:45 12/03/17 14:45 12/03/17 14:45 12/03/17 14:45 12/03/17 14:45 Internal Medicine: Result - Labs CBC & Chem 7: 12/03/17 04:45 12/03/17 04:45 Labs: Short CBC 12/03/17 Range/Units 04:45 WBC 6.4 (4.3-11.1) K/mcL Hgb 9.9 L (11.5-15.4) g/dL Hct 33.1 L (35.3-44.9) % Plt Count 90 L (140-400) K/mcL Neutrophils # 5.6 (1.6-8.9) K/mcL BMP 12/03/17 04:45 Sodium 134 L Potassium 6.3 H D Chloride 98 Carbon Dioxide 26 BUN 75 H Creatinine 6.02 H Glucose 142 H Calcium 9.3 - Attending Attestation I examined this patient and my medical decision-making was reviewed with the Resident Physician. I agree with the documented findings, disposition and treatment plan as described except to the extent set forth below.
[2017-12-03] MEDS ORDERED: Albumin 25% 25gram/100mL 25 GM/100 ML IV.SOLN IVPB ONE (11:06)
--- NOTE | 2017-12-03 14:18 | Nephrology Progress Note ---
Date of Encounter: 12/03/17 Time of Encounter: 11:35 - Assessment and Plan (1) Intra-dialytic hypotension Status: Acute I've arranged for HD today, but she appears to have relative hypotension, I susspect from her pain meds. I've dec'd the BFR and DFR plus dec'd the UF goal and added Albumin and cold dialysate, will stabiized her BPs while on HD. I've arranged for a 1K bath to help remove more of the hyperkalemia. (2) ESRD (end stage renal disease) Status: Chronic HD every M/W/F (3) History of hyperkalemia Status: Chronic Counseled her for >50% of the encounter (4) Hypoalbuminemia Status: Chronic Counseled her to increase dietary protein while restricting K+ and Phos. (5) Anemia of chronic renal failure, stage 5 Status: Chronic (6) Fracture, intertrochanteric, left femur Status: Acute As per Ortho. Recommend dosing renally cleared Rx by GFR: caution with Lovenox. Qualifiers: Encounter type: initial encounter Fracture type: closed Fracture alignment: displaced Qualified Code(s): S72.142A - Displaced intertrochanteric fracture of left femur, initial encounter for closed fracture (7) Hypertension Status: Chronic Will monitor. Qualifiers: Hypertension type: essential hypertension Qualified Code(s): I10 - Essential (primary) hypertension Subjective Principal diagnosis: ESRD Interval history: Pt was s/e while on HD. She did not affirm cramping or any problems with HD. She did not affirm new symptoms of chest pain or worsened swelling. She had hip surgery recently. Objective - Vital Signs Vital signs: Vital Signs Temp Pulse Resp BP Pulse Ox 12/03/17 13:15 118/65 12/03/17 13:00 117/63 12/03/17 12:45 114/60 12/03/17 12:30 110/60 12/03/17 12:15 107/61 12/03/17 12:00 98/58 12/03/17 11:45 113/62 12/03/17 11:30 106/60 12/03/17 11:15 86/50 12/03/17 11:00 85/50 12/03/17 10:45 85/49 12/03/17 10:30 88/51 12/03/17 10:15 86/52 12/03/17 10:00 96.8 F L 17 97/56 12/03/17 06:53 98.0 F 61 18 119/74 96 12/03/17 04:29 97.8 F 66 16 167/84 100 12/02/17 23:38 97.7 F 65 16 151/83 100 12/02/17 19:30 98.2 F 65 16 100 12/02/17 18:11 100 12/02/17 18:06 98.2 F 68 14 118/73 92 12/02/17 16:27 98 F 70 16 166/95 100 12/02/17 15:39 98 F 68 14 148/80 94 12/02/17 15:18 98.4 F 68 16 138/72 100 12/02/17 15:08 97.8 F 69 16 153/76 100 12/02/17 14:58 97.8 F 68 16 148/76 98 12/02/17 14:48 97.8 F 68 10 137/66 98 Intake and Output 12/02/17 12/03/17 12/03/17 23:59 07:59 15:59 Intake Total 250 / 250 100 / 100 600 / 600 Output Total 200 / 200 Balance 250 / 250 -100 / -100 600 / 600 Intake: IV Fluids 250 / 250 D5% And 0.45% Nacl 1000 Ml Bag 200 / 200 1,000 ML @ 50 mls/hr IVC .Q20H BRIT Rx#:[id number] Ancef Premix DUPLEX 2,000 mg In 50 / 50 50 ml @ 100 mls/hr IVPB Q8H BRIT Rx#:[id number] Oral 100 / 100 0 / 0 Intake, Rinseback and Flushes 600 / 600 Output: Catheter 200 / 200 Other: Meal Dinner Breakfast Percent of Meal Consumed 0% 0% Blood Glucose* 257 139 Hemodialysis Net Fluid Removed 149 (mL) - General Appearance General appearance: Present: well-developed, well-nourished, appears started age EENT: Present: ATNC, PERRL, mucous membranes moist Neck: Present: supple Respiratory: Present: clear Cardiology: Present: regular rate, regular rhythm, normal S1, normal S2 Dialysis Vascular Access: Arteriovenous Fistula (left with an excellent thrill and bruit) thrill: Yes bruit: Yes Gastrointestinal: Present: normoactive bowel sounds, no tenderness, no masses Integumentary: Present: warm and dry Neurologic: Present: no focal deficit, no asterixis, alert and oriented x3 Additional Comments: left hip surgery recently. She was evaluated in the bed. Psychiatric: Present: mood/affect appropriate, cooperative - Lab 12/05/17 05:52 12/04/17 09:33 Most recent lab results Calcium 9.3 mg/dL (8.6-10.3) 12/03/17 04:45 - VTE Documentation of Mechanical Device: Intermittent pneumatic compression device Consult Discharge Plan - Plan Additional Instructions: F/up with Orthopedics in 2 weeks F/up for HD 3times/week- MW Referrals: Juan Daniel Conklin MD [Primary Care Provider] - Prescriptions: OxyCODONE/APAP 10/325 [Percocet 10/325 MG] 1 each PO Q4HR PRN 5 Days #15 tablet PRN Reason: Severe Pain Enoxaparin [Lovenox] 30 mg SQ DAILY #12 syr Isosorbide MONOnitrate (24 HR) [Imdur] 30 mg PO DAILY #30 tab.er.24h
[2017-12-03] MEDS: Ondansetron ODT 4 MG TAB.RAPDIS PO PRN (14:53)
--- NOTE | 2017-12-03 17:43 | Orthopedics Progress Note ---
Date of Encounter: 12/03/17 Time of Encounter: 17:00 - Assessment and Plan (1) Intertrochanteric fracture of left hip Current Visit: Yes Status: Acute POD#1 s/p Left hip intramedullary nailing 12/02/17 Dressings to left hip to be changed tomorrow. Continue with PT/OT, WBAT. Ice to hip as needed. Pain control per hospitalist. Planning for DC to ECF that will arrange her dialysis as well. Possibly DC Sunday after dialysis. Upon discharge will require dvt prophylaxis - lovenox 2 weeks then aspirin for 4 weeks. Will follow up with Miriam Green PA-C in [place] office at [facility]. Qualifiers: Encounter type: initial encounter Fracture type: closed Fracture alignment: nondisplaced Qualified Code(s): S72.145A - Nondisplaced intertrochanteric fracture of left femur, initial encounter for closed fracture Subjective Principal diagnosis: POD#1 s/p Left hip intramedullary nailing 12/02/17 Interval history: Patient doing well. No events overnight. States pain well controlled at this time. Has some nausea but states she typically has nausea after dialysis. States she got up with Therapy today and able to take a couple steps. Denies any new concerns. Objective Vital signs: Vital Signs Temp Pulse Resp BP Pulse Ox 12/03/17 14:45 97.7 F 82 18 143/70 100 12/03/17 13:50 96.9 F L 17 157/76 12/03/17 13:30 126/64 12/03/17 13:15 118/65 12/03/17 13:00 117/63 12/03/17 12:45 114/60 12/03/17 12:30 110/60 12/03/17 12:15 107/61 12/03/17 12:00 98/58 12/03/17 11:45 113/62 12/03/17 11:30 106/60 12/03/17 11:15 86/50 12/03/17 11:00 85/50 12/03/17 10:45 85/49 12/03/17 10:30 88/51 12/03/17 10:15 86/52 12/03/17 10:00 96.8 F L 17 97/56 12/03/17 06:53 98.0 F 61 18 119/74 96 12/03/17 04:29 97.8 F 66 16 167/84 100 12/02/17 23:38 97.7 F 65 16 151/83 100 12/02/17 19:30 98.2 F 65 16 100 18 18:11 100 12/02/17 18:06 98.2 F 68 14 118/73 92 Intake and Output 12/03/17 12/03/17 12/03/17 07:59 15:59 23:59 Intake Total 100 / 100 600 / 600 Output Total 200 / 200 149 / 149 Balance -100 / -100 451 / 451 Intake: Oral 100 / 100 0 / 0 Intake, Rinseback and Flushes 600 / 600 Output: Urine 0 / 0 Total Dialysis (HD) Output 149 / 149 Catheter 200 / 200 Other: Meal Breakfast Percent of Meal Consumed 0% Blood Glucose* 139 123 Hemodialysis Net Fluid Removed 0 (mL) Incision: clean and dry (dressings to left hip c/d/i with minimal drainage visible. No surrounding erythema noted. good dorsiflexion of foot. no calf tenderness. grossly NV intact distally. ) - Labs CBC & BMP: 12/03/17 04:45 12/03/17 04:45 Labs: Abnormal lab results RBC 3.35 M/mcL (3.82-4.97) L 12/03/17 04:45 Hgb 9.9 g/dL (11.5-15.4) L 12/03/17 04:45 Hct 33.1 % (35.3-44.9) L 12/03/17 04:45 MCHC 29.9 g/dL (31.6-35.5) L 12/03/17 04:45 RDW 14.8 % (11.5-14.5) H 12/03/17 04:45 Plt Count 90 K/mcL (140-400) L 12/03/17 04:45 Lymphocytes # 0.5 K/mcL (0.6-4.6) L 12/03/17 04:45 Reactive Lymphocytes Present (Not Present) A 12/02/17 04:56 Platelet Estimate Decreased (Normal) L 12/02/17 04:56 Immature Plt Fraction 8.8 % (1.1-6.1) H 12/03/17 04:45 Sodium 134 mEq/L (136-145) L 12/03/17 04:45 Potassium 6.3 mEq/L (3.5-5.1) H D 12/03/17 04:45 BUN 75 mg/dL (8-23) H 12/03/17 04:45 Creatinine 6.02 mg/dL (0.60-1.20) H 12/03/17 04:45 Est GFR ( Amer) 9 (> 60) L 12/03/17 04:45 Est GFR (Non-Af Amer) 7 (> 60) L 12/03/17 04:45 Glucose 142 mg/dL (70-105) H 12/03/17 04:45 POC Glucose 123 (58-89) H 12/03/17 16:02 Calculated Osmolality 303 (280-300) H 12/03/17 04:45 B-Natriuretic Peptide 318 pg/mL (Less than 100) H 12/02/17 04:56 - VTE Documentation of Mechanical Device: Intermittent pneumatic compression device Consult Discharge Plan - Plan Referrals: Juan Daniel Conklin MD [Primary Care Provider] -
[2017-12-04] MEDS: *HR* OxyCODONE/APAP 10/325 TABLET PO PRN ×4 (01:14→21:37)
[2017-12-04] MEDS ORDERED: *HR* Enoxaparin 30 MG/0.3 ML SYRINGE SQ SCH (06:00)
[2017-12-04] MEDS: *HR* Heparin 5,000 UNIT/ML VIAL SQ SCH ×2 (06:19→16:57)
[2017-12-04] MEDS: Insulin LISPRO 300 UNITS/3 ML VIAL SQ SCH ×4 (09:08→21:38)
[2017-12-04] MEDS: Isosorbide MONOnitrate (24 HR) 30 MG TAB.ER.24H PO SCH (09:10)
[2017-12-04] MEDS: Furosemide 40 MG/4 ML VIAL IVP SCH (09:11)
--- NOTE | 2017-12-04 09:22 | Nephrology Progress Note ---
Date of Encounter: 12/04/17 Time of Encounter: 09:20 - Assessment and Plan (1) ESRD (end stage renal disease) on dialysis Current Visit: Yes Status: Acute Plan for dialysis tomorrow. Continue renal diet Need BMP-ordered Avoid nephrotoxins if possible (2) Hyperkalemia Current Visit: Yes Status: Acute Last BMP was yesterday 12/03-K+ 6.3 Was run on a 1K+ bath in dialysis yesterday Check BMP today (3) Fracture, intertrochanteric, left femur Current Visit: Yes Status: Acute per orthopedics team Qualifiers: Encounter type: initial encounter Fracture type: closed Fracture alignment: displaced Qualified Code(s): S72.142A - Displaced intertrochanteric fracture of left femur, initial encounter for closed fracture Subjective Principal diagnosis: POD#1 s/p Left hip intramedullary nailing 12/02/17; ESRD on dialysis Interval history: Patient seen and examined. Sitting up in chair at bedside, states she is feeling well. Objective - Vital Signs Vital signs: Vital Signs Temp Pulse Resp BP Pulse Ox 12/04/17 06:44 98.5 F 69 18 148/77 100 12/04/17 02:46 98.5 F 73 18 108/55 100 12/03/17 23:13 98.8 F 77 18 144/70 100 12/03/17 18:55 98.2 F 82 16 142/72 100 12/03/17 14:45 97.7 F 82 18 143/70 100 12/03/17 13:50 96.9 F L 17 157/76 12/03/17 13:30 126/64 12/03/17 13:15 118/65 12/03/17 13:00 117/63 12/03/17 12:45 114/60 12/03/17 12:30 110/60 12/03/17 12:15 107/61 12/03/17 12:00 98/58 12/03/17 11:45 113/62 12/03/17 11:30 106/60 12/03/17 11:15 86/50 12/03/17 11:00 85/50 12/03/17 10:45 85/49 12/03/17 10:30 88/51 12/03/17 10:15 86/52 12/03/17 10:00 96.8 F L 17 97/56 Intake and Output 12/03/17 12/04/17 12/04/17 23:59 07:59 15:59 Intake Total 200 / 200 0 / 0 100 / 100 Output Total 0 / 0 0 / 0 Balance 200 / 200 0 / 0 100 / 100 Intake: Oral 200 / 200 0 / 0 100 / 100 Output: Urine 0 / 0 0 / 0 Other: Meal Breakfast Percent of Meal Consumed 95% Weight 79.243 kg Blood Glucose* 142 106 Patient Weight 12/04/17 23:59 Weight 79.243 kg - General Appearance General appearance: Present: well-developed, well-nourished EENT: Present: ATNC, mucous membranes moist, hearing intact, vision intact Neck: Present: supple Respiratory: Present: clear Cardiology: Present: no edema, normal S1, normal S2 Dialysis Vascular Access: Arteriovenous Fistula Gastrointestinal: Present: no tenderness, no guarding Integumentary: Present: warm and dry Neurologic: Present: alert and oriented x3 Psychiatric: Present: mood/affect appropriate, cooperative - Lab 12/03/17 04:45 12/03/17 04:45 Most recent lab results Calcium 9.3 mg/dL (8.6-10.3) 12/03/17 04:45 - VTE Documentation of Mechanical Device: Intermittent pneumatic compression device Consult Discharge Plan - Plan Referrals: Juan Daniel Conklin MD [Primary Care Provider] -
[2017-12-04 10:29] LABS: Calcium 8.9 mg/dL (8.6-10.3); Potassium 3.9 mEq/L (3.5-5.1)
--- NOTE | 2017-12-04 13:15 | Orthopedics Progress Note ---
Date of Encounter: 12/04/17 Time of Encounter: 12:30 - Assessment and Plan (1) Intertrochanteric fracture of left hip Current Visit: Yes Status: Acute POD#2 s/p Left hip intramedullary nailing 12/02/17 Dressings to left hip to be changed daily. Continue with PT/OT, WBAT. Ice to hip as needed. Pain control per hospitalist. Currently left hip pain well controlled. She denies any right hip pain. Planning for DC to ECF that will arrange her dialysis as well. Possibly DC Sunday after dialysis. Upon discharge will require dvt prophylaxis - lovenox 2 weeks then aspirin for 4 weeks. Will follow up with Miriam Green PA-C in [place] office on 12/17/17 at 11am Qualifiers: Encounter type: initial encounter Fracture type: closed Fracture alignment: nondisplaced Qualified Code(s): S72.145A - Nondisplaced intertrochanteric fracture of left femur, initial encounter for closed fracture Subjective Principal diagnosis: POD#2 s/p Left hip intramedullary nailing 12/02/17; ESRD on dialysis Interval history: Patient doing well. No events overnight. States pain well controlled at this time. She did participate with OT this morning but refused PT due to nausea. Patient has been having nausea since dialysis yesterday but denies any at this time and is currently eating lunch with no problem. Denies any calf pain. Denies any right hip pain. Objective Vital signs: Vital Signs Temp Pulse Resp BP Pulse Ox 12/04/17 10:41 97.6 F 63 18 105/58 100 12/04/17 06:44 98.5 F 69 18 148/77 100 12/04/17 02:46 98.5 F 73 18 108/55 100 12/03/17 23:13 98.8 F 77 18 144/70 100 12/03/17 18:55 98.2 F 82 16 142/72 100 12/03/17 14:45 97.7 F 82 18 143/70 100 12/03/17 13:50 96.9 F L 17 157/76 12/03/17 13:30 126/64 12/03/17 13:15 118/65 Intake and Output 12/03/17 12/04/17 12/04/17 23:59 07:59 15:59 Intake Total 200 / 200 0 / 0 100 / 100 Output Total 0 / 0 0 / 0 Balance 200 / 200 0 / 0 100 / 100 Intake: Oral 200 / 200 0 / 0 100 / 100 Output: Urine 0 / 0 0 / 0 Other: Meal Breakfast Percent of Meal Consumed 95% Weight 79.243 kg Blood Glucose* 142 106 134 Patient Weight 12/04/17 23:59 Weight 79.243 kg Incision: clean and dry (dressings c/d/i with no visible drainage or surrounding erythema. no nate ftenderness. ROM restricted. good dorsiflexion of foot. grossly NV intact distally.) - Labs CBC & BMP: 12/03/17 04:45 12/04/17 09:33 Labs: Abnormal lab results RBC 3.35 M/mcL (3.82-4.97) L 12/03/17 04:45 Hgb 9.9 g/dL (11.5-15.4) L 12/03/17 04:45 Hct 33.1 % (35.3-44.9) L 12/03/17 04:45 MCHC 29.9 g/dL (31.6-35.5) L 12/03/17 04:45 RDW 14.8 % (11.5-14.5) H 12/03/17 04:45 Plt Count 90 K/mcL (140-400) L 12/03/17 04:45 Lymphocytes # 0.5 K/mcL (0.6-4.6) L 12/03/17 04:45 Reactive Lymphocytes Present (Not Present) A 12/02/17 04:56 Platelet Estimate Decreased (Normal) L 12/02/17 04:56 Immature Plt Fraction 8.8 % (1.1-6.1) H 12/03/17 04:45 Chloride 92 mEq/L (98-107) L 12/04/17 09:33 Carbon Dioxide 34 mEq/L (23-29) H 12/04/17 09:33 BUN 36 mg/dL (8-23) H 12/04/17 09:33 Creatinine 3.82 mg/dL (0.60-1.20) H 12/04/17 09:33 Est GFR ( Amer) 15 (> 60) L 12/04/17 09:33 Est GFR (Non-Af Amer) 12 (> 60) L 12/04/17 09:33 Glucose 120 mg/dL (70-105) H 12/04/17 09:33 POC Glucose 106 (58-89) H 12/04/17 06:53 B-Natriuretic Peptide 318 pg/mL (Less than 100) H 12/02/17 04:56 - VTE Documentation of Mechanical Device: Intermittent pneumatic compression device Consult Discharge Plan - Plan Referrals: Juan Daniel Conklin MD [Primary Care Provider] -
--- NOTE | 2017-12-04 16:07 | Internal Med Progress Note ---
Date of Encounter: 12/04/17 Time of Encounter: 12:20 - Assessment and plan (1) Fracture, intertrochanteric, left femur Current Visit: Yes Status: Acute Assessment and plan: Orthopedic surgery consulted, status post left hip intramedullary nailing, postoperative day 2. Noted to have 1 g drop in hemoglobin, continue to monitor. Stable for discharge from orthopedic standpoint; continue local wound care and pain control with oral oxycodone. Physical and occupational therapy evaluation recommended ECF placement, nursing home social worker on board for the same. Qualifiers: Encounter type: initial encounter Fracture type: closed Fracture alignment: displaced Qualified Code(s): S72.142A - Displaced intertrochanteric fracture of left femur, initial encounter for closed fracture (2) CHF (congestive heart failure) Current Visit: Yes Status: Chronic Assessment and plan: Echo from 2016 shows EF 50% with mild LVH. Continue beta elieser and nitrate; hold IV diuretics; Qualifiers: Heart failure type: combined systolic and diastolic Heart failure chronicity: chronic Qualified Code(s): I50.42 - Chronic combined systolic ( congestive) and diastolic (congestive) heart failure (3) Chronic respiratory failure with hypoxia Current Visit: Yes Status: Chronic Assessment and plan: Continue supplemental O2; (4) Diabetes mellitus Current Visit: Yes Status: Chronic Assessment and plan: Continue Accu-Chek blood glucose monitoring with sliding scale insulin as needed. Diabetic diet. Blood sugars noted to be well controlled. Qualifiers: Diabetes mellitus type: type 2 Diabetes mellitus halfway insulin use: with halfway use Diabetes mellitus complication status: with kidney complications Diabetes mellitus complication detail: with chronic kidney disease Chronic kidney disease stage: on chronic dialysis Qualified Code(s) : E11.22 - Type 2 diabetes mellitus with diabetic chronic kidney disease; N18.6 - End stage renal disease; N18.6 - End stage renal disease; N18.6 - End stage renal disease; N18.6 - End stage renal disease; Z79.4 - senior living (current) use of insulin; Z79.4 - senior living (current) use of insulin; 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 (6) Anemia of chronic renal failure, stage 5 Current Visit: Yes Status: Chronic (7) Hypertension Current Visit: Yes Status: Chronic Qualifiers: Hypertension type: essential hypertension Qualified Code(s): I10 - Essential (primary) hypertension - Subjective Interval history: Reports feeling well; improving left hip pain; able to participate with PT; no fever/chills, nausea, vomiting; reports constipation; - Constitutional Vitals: Temp Pulse Resp BP Pulse Ox 97.6 F 71 18 128/72 99 12/04/17 15:25 12/04/17 15:25 12/04/17 15:25 12/04/17 15:25 12/04/17 15:25 General appearance: Present: A&O X 3, answers questions appropriately - Respiratory Respiratory exam: Present: CTAB. Absent: accessory muscle use, rales, rhonchi, wheezes - Cardiovascular Cardiovascular exam: Present: RRR, +S1, +S2. Absent: diastolic murmur, gallop, rubs, systolic murmur - GI/Abdominal GI/Abdominal exam: Present: normal bowel sounds, soft, no peritoneal signs. Absent: distended, tenderness - Extremities Exam Extremities exam: Present: full ROM (restricted in left hip), warm, radial pulses palpable and symmetrical. Absent: calf tenderness, cyanotic, pedal edema Additional comments: left lateral hip in dry surgical dressing Internal Medicine: Result - Labs CBC & Chem 7: 12/03/17 04:45 12/04/17 09:33 Labs: BMP 12/04/17 09:33 Sodium 137 Potassium 3.9 Chloride 92 L Carbon Dioxide 34 H BUN 36 H Creatinine 3.82 H Glucose 120 H Calcium 8.9 - VTE Documentation of Mechanical Device: Intermittent pneumatic compression device Consult Discharge Plan - Plan Referrals: Juan Daniel Conklin MD [Primary Care Provider] -
[2017-12-04] MEDS: Sennosides/Docusate Sodium TABLET PO SCH (21:38)
[2017-12-05] MEDS: *HR* OxyCODONE/APAP 10/325 TABLET PO PRN ×2 (03:16→08:50)
[2017-12-05 06:27] LABS: Immature Granulocytes % 0.3 % (0-4); Mean Corpuscular HGB Conc 30.8 g/dL (31.6-35.5); Mean Corpuscular Volume 97.4 fL (83.0-100.0); Mean Platelet Volume 11.2 fL (9.4-12.4); Platelet Count 121 K/mcL (140-400); Red Blood Count 2.67 M/mcL (3.82-4.97); Red Cell Distribution Width 15.3 % (11.5-14.5); Segmented Neutrophils % 70.1 %
[2017-12-05 06:28] LABS: Basophils % 0.3 %; Eosinophils # 0.2 K/mcL (0.0-0.6); Eosinophils % 4.5 %; Lymphocytes # 0.6 K/mcL (0.6-4.6); Lymphocytes % 16.8 %; Monocytes # 0.3 K/mcL (0.0-1.3); Neutrophils # 2.6 K/mcL (1.6-8.9)
[2017-12-05] MEDS: *HR* Heparin 5,000 UNIT/ML VIAL SQ SCH (06:33)
[2017-12-05] MEDS ORDERED: 0.9 % Sodium Chloride 250 ML IVC PRN (06:45)
[2017-12-05] MEDS ORDERED: 0.9 % Sodium Chloride 2,000 ML ONE (06:56)
[2017-12-05] MEDS: Insulin LISPRO 300 UNITS/3 ML VIAL SQ SCH ×2 (07:56→12:00)
[2017-12-05] MEDS: Isosorbide MONOnitrate (24 HR) 30 MG TAB.ER.24H PO SCH (09:00)
[2017-12-05] MEDS: Sennosides/Docusate Sodium TABLET PO SCH (09:00)
--- NOTE | 2017-12-05 13:24 | Nephrology Progress Note ---
Date of Encounter: 12/05/17 Time of Encounter: 11:30 - Assessment and Plan (1) Intra-dialytic hypotension Status: Acute I've arranged for HD today for clearance and UF. Next HD is planned for Sunday, if she were to remains hospitalized. (2) ESRD (end stage renal disease) Status: Chronic (3) History of hyperkalemia Status: Chronic (4) Hypoalbuminemia Status: Chronic (5) Anemia of chronic renal failure, stage 5 Status: Chronic (6) Fracture, intertrochanteric, left femur Status: Acute Qualifiers: Encounter type: initial encounter Fracture type: closed Fracture alignment: displaced Qualified Code(s): S72.142A - Displaced intertrochanteric fracture of left femur, initial encounter for closed fracture (7) Hypertension Status: Chronic Qualifiers: Hypertension type: essential hypertension Qualified Code(s): I10 - Essential (primary) hypertension Subjective Principal diagnosis: POD#2 s/p Left hip intramedullary nailing 12/02/17; ESRD on dialysis Interval history: Pt was s/e and she did not affirm N/V/D or cramping or other major complaints. Objective - Vital Signs Vital signs: Vital Signs Temp Pulse Resp BP Pulse Ox 12/05/17 10:30 98.5 F 83 16 134/67 98 12/05/17 06:45 98.9 F 78 16 127/68 99 12/05/17 06:05 75 121/67 12/05/17 03:21 99.2 F 76 18 168/72 100 12/04/17 23:13 98.8 F 71 16 135/68 100 12/04/17 18:49 98.1 F 75 18 123/66 100 12/04/17 15:25 97.6 F 71 18 128/72 99 Intake and Output 12/04/17 12/05/17 12/05/17 23:59 07:59 15:59 Intake Total 250 / 250 0 / 0 240 / 240 Output Total 0 / 0 400 / 400 Balance 250 / 250 -400 / -400 240 / 240 Intake: Oral 250 / 250 0 / 0 240 / 240 Output: Urine 0 / 0 400 / 400 Other: Meal Breakfast Percent of Meal Consumed 70% Weight 79.107 kg Blood Glucose* 129 135 146 Patient Weight 12/05/17 23:59 Weight 79.107 kg - General Appearance Exam: General appearance: Present: well-developed, well-nourished, appears started age EENT: Present: ATNC, PERRL, mucous membranes moist Neck: Present: supple Respiratory: Present: clear Cardiology: Present: regular rate, regular rhythm, normal S1, normal S2 Dialysis Vascular Access: Arteriovenous Fistula (left with an excellent thrill and bruit) thrill: Yes bruit: Yes Gastrointestinal: Present: normoactive bowel sounds, no tenderness, no masses Integumentary: Present: warm and dry Neurologic: Present: no focal deficit, no asterixis, alert and oriented x3 Psychiatric: Present: mood/affect appropriate, cooperative - Lab 12/05/17 05:52 12/04/17 09:33 Most recent lab results Calcium 8.9 mg/dL (8.6-10.3) 12/04/17 09:33 - VTE Documentation of Mechanical Device: Intermittent pneumatic compression device Consult Discharge Plan - Plan Additional Instructions: F/up with Orthopedics in 2 weeks F/up for HD 3times/week- MWF Referrals: Juan Daniel Conklin MD [Primary Care Provider] - Prescriptions: OxyCODONE/APAP 10/325 [Percocet 10/325 MG] 1 each PO Q4HR PRN 5 Days #15 tablet PRN Reason: Severe Pain Enoxaparin [Lovenox] 30 mg SQ DAILY #12 syr Isosorbide MONOnitrate (24 HR) [Imdur] 30 mg PO DAILY #30 tab.er.24h
[2017-12-05] MEDS: Ondansetron ODT 4 MG TAB.RAPDIS PO PRN (14:42)
[2017-12-05 15:50] VITALS: BP 130/61
--- NOTE | 2017-12-05 16:07 | Discharge Summary ---
Orders not resulted at time of discharge: Pending orders 12/02/17 01:34 ECG 12 lead ECG [ECG] Stat Date of Encounter: 12/06/17 Time of Encounter: 16:05 - Discharge Diagnosis (1) Fracture, intertrochanteric, left femur Priority: Primary Status: Acute Qualifiers: Encounter type: initial encounter Fracture type: closed Fracture alignment: displaced Qualified Code(s): S72.142A - Displaced intertrochanteric fracture of left femur, initial encounter for closed fracture (2) CHF (congestive heart failure) Priority: Secondary Status: Chronic Qualifiers: Heart failure type: combined systolic and diastolic Heart failure chronicity: chronic Qualified Code(s): I50.42 - Chronic combined systolic ( congestive) and diastolic (congestive) heart failure (3) Chronic respiratory failure with hypoxia Priority: Secondary Status: Chronic (4) Diabetes mellitus Priority: Secondary Status: Chronic Qualifiers: Diabetes mellitus type: type 2 Diabetes mellitus skilled nursing insulin use: with skilled nursing use Diabetes mellitus complication status: with kidney complications Diabetes mellitus complication detail: with chronic kidney disease Chronic kidney disease stage: on chronic dialysis Qualified Code(s) : E11.22 - Type 2 diabetes mellitus with diabetic chronic kidney disease; N18.6 - End stage renal disease; N18.6 - End stage renal disease; N18.6 - End stage renal disease; N18.6 - End stage renal disease; Z79.4 - correction (current) use of insulin; Z79.4 - equipment operator intermodal yard (current) use of insulin; Z79.4 - correction ( current) use of insulin; Z79.4 - correction (current) use of insulin; Z99.2 - Dependence on renal dialysis; Z99.2 - Dependence on renal dialysis; Z99.2 - Dependence on renal dialysis; Z99.2 - Dependence on renal dialysis (5) ESRD (end stage renal disease) on dialysis Priority: Secondary Status: Chronic (6) Anemia of chronic renal failure, stage 5 Priority: Secondary Status: Chronic (7) Hypertension Priority: Secondary Status: Chronic Qualifiers: Hypertension type: essential hypertension Qualified Code(s): I10 - Essential (primary) hypertension Hospital course: Ms. Naqvi is a 62 year old female with the above medical problems, who was admitted from [place] emergency room with left hip pain after mechanical fall. Hip x-ray showed left femoral neck fracture. Orthopedic surgery was consulted and patient underwent left hip intramedullary nailing on 12/02/2017. Noted to have a 1 g drop in hemoglobin but otherwise did well postoperatively. Physical and occupational therapy evaluation recommended ECF placement. Nephrology was consulted and she received regular hemodialysis sessions during this admission. She is currently stable from medical and orthopedic standpoint for transfer to rehabilitation. She is being discharged on DVT prophylaxis with subcutaneous Lovenox for 2 weeks. She will follow-up in orthopedics clinic. Discharge discussed with: patient - Time Spent with Patient Total time spent providing and/or coordinating discharge services: Greater than 30 minutes (45 min) - Discharge Medications Prescriptions: OxyCODONE/APAP 10/325 [Percocet 10/325 MG] 1 each PO Q4HR PRN 5 Days #15 tablet PRN Reason: Severe Pain Enoxaparin [Lovenox] 30 mg SQ DAILY #12 syr Isosorbide MONOnitrate (24 HR) [Imdur] 30 mg PO DAILY #30 tab.er.24h Home Medications: Aspirin Enteric Coated [Aspirin EC] 81 mg PO DAILY 05/21/15 [History] Carvedilol [Coreg] 25 mg PO BID 05/21/15 [History] Insulin ASPART [NovoLOG] 3 - 7 unit SQ TIDWM MDD per sliding scale 05/21/15 [ History] Ondansetron [Zofran] 8 mg PO TID PRN 05/21/15 [History] Pantoprazole Sodium 40 mg PO DAILY 05/21/15 [History] Torsemide [Demadex] 20 mg PO DAILY 05/21/15 [History] Sevelamer [Renvela] 1,600 mg PO TIDWM 02/07/17 [History] Enoxaparin [Lovenox] 30 mg SQ DAILY #12 syr 12/05/17 [Rx] Epoetin Kang [Procrit] 3,000 unit SQ 3XW vial 12/05/17 [Rx] Isosorbide MONOnitrate (24 HR) [Imdur] 30 mg PO DAILY #30 tab.er.24h 12/05/17 [ Rx] OxyCODONE/APAP 10/325 [Percocet 10/325 MG] 1 each PO Q4HR PRN 5 Days #15 tablet 12/05/17 [Rx] Sennosides/Docusate Sodium [Senna Plus] 1 each PO BID tablet 12/05/17 [Rx] Allergies/Adverse Reactions: 3 Allergy/AdvReac Type Severity Reaction Status Date / Time acetaminophen [From Vicodin] Allergy Itching Verified 02/07/17 12:32 heparin Allergy See Verified 12/02/17 10:52 Comments hydrocodone [From Vicodin] Allergy Itching Verified 02/07/17 12:32 Date of admission: 12/02/17 01:34 Primary care physician: Juan Daniel Conklin MD Consults: 12/02/17 00:12 Consult to Hard Candy Batch Mixer [CONS] Routine Reason for SW Consult: May need rehab or HH after hip surgery 12/02/17 01:37 Consult to Physician [CONS] Routine Consulting Provider: Leopoldo Haley Reason for Consult: ESRD Call Completed: Yes 12/02/17 01:38 Consult to Physical Therapy [CONS] Routine Comment: Evaluate, develop and implement POC Reason for Consult: post-op Does patient have active BEDREST order?: Yes Is patient medically & hemodynamically stable?: Yes Patient assessed for mobility or mobilized this visit?: Yes 12/02/17 01:42 Consult to Orthopedic Surgery [CONS] Routine Consulting Provider: Rusty Chapa Reason for Consult: hip fracture Call Completed: Yes 12/02/17 16:25 Consult to Physical Therapy [CONS] Routine Comment: Evaluate, develop and implement POC Reason for Consult: surgery wb as tolerated Does patient have active BEDREST order?: No Is patient medically & hemodynamically stable?: Yes OT [Consult to Occupational Therapy] [CONS] Routine Comment: Evaluate, develop and implement POC Reason for Consult: wb as luis Does patient have active BEDREST order?: No Is patient medically & hemodynamically stable?: Yes 12/03/17 07:30 Consult to Dialysis [CONS] ONCE 12/05/17 06:45 Consult to Dialysis [CONS] ONCE 12/06/17 06:45 Consult to Dialysis [CONS] ONCE Discharging clinician: Allyssa Stinson Anticipated date of discharge: 12/05/17 - Constitutional Vitals: Temp Pulse Resp BP Pulse Ox 97.2 F L 83 18 130/61 98 12/05/17 15:48 12/05/17 10:30 12/05/17 15:48 12/05/17 15:48 12/05/17 10:30 General appearance: Present: A&O X 3, answers questions appropriately - Respiratory Respiratory exam: Present: CTAB. Absent: accessory muscle use, rales, rhonchi, wheezes - Cardiovascular Cardiovascular exam: Present: RRR, +S1, +S2. Absent: diastolic murmur, gallop, rubs, systolic murmur - Patient Status Disposition: Transfer SNF Condition: Good Functional capacity at discharge: uses cane/walker Overall status at discharge: patient is progressing back to baseline - Discharge Instructions Follow Up With: Juan Daniel Conklin MD [Primary Care Provider] - Additional Instructions: F/up with Orthopedics in 2 weeks F/up for HD 3times/week- MWF - Diet and Activity Activity: as per physical therapy, wear oxygen at all times Diet: diabetic diet, low fat, low cholesterol, low salt diet, other (renal diet) - VTE Documentation of Mechanical Device: Intermittent pneumatic compression device
--- NOTE | 2017-12-05 16:18 | Physician Discharge Referral ---
ExtendedCare Referral Info Transfer To: [facility] Provider in Charge: Allyssa Stinson Provider in Charge after Transfer: PCP Institutional Level of Care: Skilled - Diagnosis (1) Fracture, intertrochanteric, left femur Priority: Primary Status: Acute (2) CHF (congestive heart failure) Priority: Secondary Status: Chronic (3) Chronic respiratory failure with hypoxia Priority: Secondary Status: Chronic (4) Diabetes mellitus Priority: Secondary Status: Chronic (5) ESRD (end stage renal disease) on dialysis Priority: Secondary Status: Chronic (6) Anemia of chronic renal failure, stage 5 Priority: Secondary Status: Chronic (7) Hypertension Priority: Secondary Status: Chronic Expected Duration of Placement: 3weeks Prognosis: Fair Aware of Diagnosis: Patient Aware of Prognosis: Patient - Transfer Medications Prescriptions: OxyCODONE/APAP 10/325 [Percocet 10/325 MG] 1 each PO Q4HR PRN 5 Days #15 tablet PRN Reason: Severe Pain Enoxaparin [Lovenox] 30 mg SQ DAILY #12 syr Isosorbide MONOnitrate (24 HR) [Imdur] 30 mg PO DAILY #30 tab.er.24h Home Medications: Aspirin Enteric Coated [Aspirin EC] 81 mg PO DAILY 05/21/15 [History] Carvedilol [Coreg] 25 mg PO BID 05/21/15 [History] Insulin ASPART [NovoLOG] 3 - 7 unit SQ TIDWM MDD per sliding scale 05/21/15 [ History] Ondansetron [Zofran] 8 mg PO TID PRN 05/21/15 [History] Pantoprazole Sodium 40 mg PO DAILY 05/21/15 [History] Torsemide [Demadex] 20 mg PO DAILY 05/21/15 [History] Sevelamer [Renvela] 1,600 mg PO TIDWM 02/07/17 [History] Enoxaparin [Lovenox] 30 mg SQ DAILY #12 syr 12/05/17 [Rx] Epoetin Kang [Procrit] 3,000 unit SQ 3XW vial 12/05/17 [Rx] Isosorbide MONOnitrate (24 HR) [Imdur] 30 mg PO DAILY #30 tab.er.24h 12/05/17 [ Rx] OxyCODONE/APAP 10/325 [Percocet 10/325 MG] 1 each PO Q4HR PRN 5 Days #15 tablet 12/05/17 [Rx] Sennosides/Docusate Sodium [Senna Plus] 1 each PO BID tablet 12/05/17 [Rx] Allergies/Adverse Reactions: 3 Allergy/AdvReac Type Severity Reaction Status Date / Time acetaminophen [From Vicodin] Allergy Itching Verified 02/07/17 12:32 heparin Allergy See Verified 12/02/17 10:52 Comments hydrocodone [From Vicodin] Allergy Itching Verified 02/07/17 12:32 - Respiratory Orders Oxygen / L per min (2L/min via NC, to maintain O2 sat>90%) Smoking Cessation: Smoking cessation has been advised. For more information, call the [place] [employer] Quit Line at 0-984-XANG-NOW. - Advance Directives Code Status: Full Code - Mobility Orders Ambulate - Rehabiliation Orders Rehab Potential: Good Rehab Orders: ROM Exercises, Evaluation for Physical Therapy, Evaluation for Occupational Therapy - Diet Orders No Concentrated Sweets (diabetic), Renal, Cardiac CERTIFICATION: I certify that the transfer of the above named patient to an Extended Care Facility is necessary for the continuing treatment of the diagnosis listed. The above information is true and accurate reflection of patient's current condition. Confidential - Redisclosure prohibited without a patient's written consent.
--- NOTE | 2017-12-05 16:47 | Orthopedics Progress Note ---
Date of Encounter: 12/05/17 Time of Encounter: 12:30 - Assessment and Plan (1) Intertrochanteric fracture of left hip Current Visit: Yes Status: Acute POD#3 s/p Left hip intramedullary nailing 12/02/17 Dressings to left hip to be changed daily. Continue with PT/OT, WBAT. Ice to hip as needed. Pain control per hospitalist. Currently left hip pain well controlled. She denies any right hip pain. Planning for DC to ECF that will arrange her dialysis as well. Possibly DC today after dialysis. Upon discharge will require dvt prophylaxis - lovenox 2 weeks then aspirin for 4 weeks. Will follow up with Miriam Green PA-C in [facility] office on 12/17/17 at 11am Orthopedics will sign off at this time but please call for any future questions. Qualifiers: Encounter type: initial encounter Fracture type: closed Fracture alignment: nondisplaced Qualified Code(s): S72.145A - Nondisplaced intertrochanteric fracture of left femur, initial encounter for closed fracture Subjective Principal diagnosis: POD#3 s/p Left hip intramedullary nailing 12/02/17; ESRD on dialysis Interval history: Patient doing well. Currently receiving dialysis. No events overnight. States pain well controlled at this time. She continues to participate therapy. Denies any calf pain. Denies any right hip pain. Objective Vital signs: Vital Signs Temp Pulse Resp BP Pulse Ox 12/05/17 15:48 97.2 F L 18 130/61 12/05/17 15:15 125/57 12/05/17 15:00 117/50 12/05/17 14:45 147/62 12/05/17 14:30 161/74 12/05/17 14:15 187/74 12/05/17 14:00 113/59 12/05/17 13:45 95/52 12/05/17 13:30 92/48 12/05/17 13:15 106/59 12/05/17 13:00 122/63 12/05/17 12:45 102/54 12/05/17 12:30 141/67 12/05/17 12:15 127/65 12/05/17 12:00 97.8 F 16 136/67 12/05/17 10:30 98.5 F 83 16 134/67 98 12/05/17 07:55 91 12/05/17 06:45 98.9 F 78 16 127/68 99 12/05/17 06:05 75 121/67 12/05/17 03:21 99.2 F 76 18 168/72 100 12/04/17 23:13 98.8 F 71 16 135/68 100 12/04/17 18:49 98.1 F 75 18 123/66 100 Intake and Output 12/05/17 12/05/17 12/05/17 07:59 15:59 23:59 Intake Total 0 / 0 840 / 840 Output Total 400 / 400 2099 Balance -400 / -400 -1260 / -1260 Intake: Oral 0 / 0 240 / 240 Intake, Rinseback and Flushes 600 / 600 Output: Urine 400 / 400 0 / 0 Total Dialysis (HD) Output 2099 Other: Meal Breakfast Percent of Meal Consumed 70% Weight 79.107 kg Blood Glucose* 135 146 Hemodialysis Net Fluid Removed 1500 (mL) Patient Weight 12/05/17 23:59 Weight 79.107 kg Incision: clean and dry (dressings c/d/i with no visible drainage or surrounding erythema. calf nontender, good dorsiflexion of foot, grossly NV intact. ) - Labs CBC & BMP: 12/05/17 05:52 12/04/17 09:33 Labs: Abnormal lab results WBC 3.7 K/mcL (4.3-11.1) L 12/05/17 05:52 RBC 2.67 M/mcL (3.82-4.97) L 12/05/17 05:52 Hgb 8.0 g/dL (11.5-15.4) L D 12/05/17 05:52 Hct 26.0 % (35.3-44.9) L 12/05/17 05:52 MCHC 30.8 g/dL (31.6-35.5) L 12/05/17 05:52 RDW 15.3 % (11.5-14.5) H 12/05/17 05:52 Plt Count 121 K/mcL (140-400) L 12/05/17 05:52 Reactive Lymphocytes Present (Not Present) A 12/02/17 04:56 Platelet Estimate Decreased (Normal) L 12/02/17 04:56 Immature Plt Fraction 8.8 % (1.1-6.1) H 12/03/17 04:45 Chloride 92 mEq/L (98-107) L 12/04/17 09:33 Carbon Dioxide 34 mEq/L (23-29) H 12/04/17 09:33 BUN 36 mg/dL (8-23) H 12/04/17 09:33 Creatinine 3.82 mg/dL (0.60-1.20) H 12/04/17 09:33 Est GFR ( Amer) 15 (> 60) L 12/04/17 09:33 Est GFR (Non-Af Amer) 12 (> 60) L 12/04/17 09:33 Glucose 120 mg/dL (70-105) H 12/04/17 09:33 POC Glucose 146 (58-89) H 12/05/17 11:52 B-Natriuretic Peptide 318 pg/mL (Less than 100) H 12/02/17 04:56 - VTE Documentation of Mechanical Device: Intermittent pneumatic compression device Consult Discharge Plan - Plan Additional Instructions: F/up with Orthopedics in 2 weeks F/up for HD 3times/week- MWF Referrals: Juan Daniel Conklin MD [Primary Care Provider] - Prescriptions: OxyCODONE/APAP 10/325 [Percocet 10/325 MG] 1 each PO Q4HR PRN 5 Days #15 tablet PRN Reason: Severe Pain Enoxaparin [Lovenox] 30 mg SQ DAILY #12 syr Isosorbide MONOnitrate (24 HR) [Imdur] 30 mg PO DAILY #30 tab.er.24h
== END 2017-12-05 19:24 | DRG 480 ==
LOC: 3NENU → SUATTDRO 12-02 01:34
PROVIDERS: ADMIT Hospitalist; ATTEND Internal Medicine

== ENCOUNTER 2022-02-11 11:36 | Inpatient (IN) ==
[2022-02-11] MEDS ORDERED: 0.9 % Sodium Chloride 1,000 ML IVC ONE (12:10)
[2022-02-11 12:51] LABS: Hematocrit 30.8 % (35.3-44.9); Hemoglobin 9.4 g/dL (11.5-15.4); Mean Corpuscular HGB Conc 30.5 g/dL (31.6-35.5); Mean Corpuscular Hemoglobin 29.2 pg (28.0-33.3); Mean Corpuscular Volume 95.7 fL (83.0-100.0); Mean Platelet Volume 12.2 fL (9.4-12.4); Monocytes # 0.5 K/mcL (0.0-1.3); Platelet Count 137 K/mcL (140-400); Red Blood Count 3.22 M/mcL (3.82-4.97); White Blood Count 6.3 K/mcL (4.3-11.1)
[2022-02-11 12:58] LABS: Albumin 3.4 g/dL (3.5-5.7); Bilirubin,Total 0.6 mg/dL (0.3-1.0); Calcium 9.4 mg/dL (8.6-10.3); Globulin 3.4 g/dL (2.4-3.5); Magnesium 1.7 mg/dL (1.6-2.6); Total Protein 6.8 g/dL (6.4-8.9); Troponin I 0.04 ng/mL (< 0.04)
[2022-02-11 12:59] LABS: INR 1.2; Prothrombin Time 13.7 Seconds (9.4-12.1)
[2022-02-11 13:08] LABS: Influenza A PCR Negative (Negative); Influenza B PCR Negative (Negative); Resp. Syncytial Virus PCR Negative (Negative)
[2022-02-11 13:09] LABS: SARS-CoV-2 by PCR (In House) Negative (Negative)
[2022-02-11 13:53] LABS: Lymphocytes # 0.3 K/mcL (0.6-4.6); Neutrophils # 5.5 K/mcL (1.6-8.9)
[2022-02-11 13:54] LABS: Hypochromasia Present (Not Present); Platelet Estimate Slight Decrease (Normal)
[2022-02-11] MEDS ORDERED: Cefepime HCl 1,000 MG in 0.9 % Sodium Chloride Mini Bag 100 ML IVPB STA (14:13)
[2022-02-11] MEDS ORDERED: Mag Hydrox/Al Hydrox/Simeth 30 ML UDC PO PRN (17:26)
[2022-02-11] MEDS ORDERED: Naloxone 0.4 MG/ML INJ IVP PRN (17:26)
[2022-02-11] MEDS ORDERED: Melatonin 3 MG TABLET PO PRN (17:26)
[2022-02-11] MEDS ORDERED: Ondansetron ODT 4 MG TAB.RAPDIS SL PRN (17:26)
[2022-02-11] MEDS ORDERED: Gadolinium Contrast Agent (WT Based) IV PRN (17:28)
[2022-02-11] MEDS ORDERED: *HR* Dextrose 50 % in Water (Syg) 50 ML SYRINGE IVP PRN (17:30)
[2022-02-11] MEDS ORDERED: D5% in Water 1,000 ML IVC PRN (17:30)
[2022-02-11] MEDS ORDERED: Dextrose Gel 15 GM/37.5 ML TUBE PO PRN ×2 (17:30)
[2022-02-11] MEDS ORDERED: Perflutren Lipid Microsphere 1.3 ML in 0.9 % Sodium Chloride 8.7 ML IVP PRN (19:05)
[2022-02-11] MEDS: 0.9 % Sodium Chloride 1,000 ML IVC SCH (20:00)
[2022-02-11] MEDS: (Tacrolimus [Prograf] 1 MG Capsule) PO SCH (20:34)
[2022-02-11] MEDS: Insulin LISPRO 300 UNITS/3 ML VIAL SUBQ SCH (20:35)
[2022-02-11] MEDS: Mycophenolate Sodium (DR) 180 MG TABLET.DR PO SCH (20:40)
[2022-02-11 22:30] LABS: Estimated Average Glucose 169 mg/dl; Hemoglobin A1C 7.5 %
[2022-02-12 01:40] LABS: Basophils % 0.2 %; Eosinophils # 0.1 K/mcL (0.0-0.6); Eosinophils % 1.2 %; Hematocrit 28.1 % (35.3-44.9); Hemoglobin 8.4 g/dL (11.5-15.4); Immature Granulocytes % 6.1 % (0-4); Lymphocytes # 0.4 K/mcL (0.6-4.6); Lymphocytes % 8.5 %; Mean Corpuscular HGB Conc 29.9 g/dL (31.6-35.5); Mean Corpuscular Hemoglobin 28.5 pg (28.0-33.3); Mean Corpuscular Volume 95.3 fL (83.0-100.0); Monocytes # 0.6 K/mcL (0.0-1.3); Monocytes % 11.9 %; Neutrophils # 3.6 K/mcL (1.6-8.9); Platelet Count 131 K/mcL (140-400); Red Blood Count 2.95 M/mcL (3.82-4.97); Red Cell Distribution Width 13.1 % (11.5-14.5); Segmented Neutrophils % 72.1 %
[2022-02-12 02:11] LABS: Alanine Aminotransferase 6 Units/L (7-52); Albumin 2.9 g/dL (3.5-5.7); Alkaline Phosphatase 61 Units/L (34-104); Aspartate Amino Transferase 10 Units/L (13-39); BUN/Creatinine Ratio 16 (6-26); Bilirubin,Total 0.4 mg/dL (0.3-1.0); Blood Urea Nitrogen 48 mg/dL (8-23); Calcium 8.8 mg/dL (8.6-10.3); Carbon Dioxide 19 mEq/L (23-29); Chloride 107 mEq/L (98-107); Globulin 2.9 g/dL (2.4-3.5); Glucose 152 mg/dL (70-105); Osmolality,Calculated 294 (280-300); Potassium 4.3 mEq/L (3.5-5.1); Sodium 134 mEq/L (136-145); Total Protein 5.8 g/dL (6.4-8.9); Troponin I < 0.03 ng/mL (< 0.04); eGFR For African Americans 19 (> 60); eGFR For Non-African Americans 16 (> 60)
[2022-02-12 02:17] LABS: Hypochromasia Present (Not Present); Platelet Estimate Normal (Normal)
[2022-02-12] MEDS: Piperacillin/Tazobactam 3.375 GM in 0.9 % Sodium Chloride Mini Bag 100 ML IVPB SCH ×2 (02:20→15:44)
[2022-02-12] MEDS: Mycophenolate Sodium (DR) 180 MG TABLET.DR PO SCH ×2 (09:34→20:36)
[2022-02-12] MEDS: 0.9 % Sodium Chloride 1,000 ML IVC SCH ×2 (09:35→15:44)
[2022-02-12] MEDS: Insulin LISPRO 300 UNITS/3 ML VIAL SUBQ SCH ×4 (09:35→20:35)
[2022-02-12] MEDS: (Tacrolimus [Prograf] 1 MG Capsule) PO SCH ×2 (09:35→20:35)
[2022-02-12 15:21] LABS: Amorphous Sediment,Urine Few per hpf (None-Few); Bacteria,Urine Few per hpf (None-Few); Bilirubin,Urine Negative (Negative); Blood,Urine Small (Negative); Clarity,Urine Ex.Turbid (Clear); Color,Urine Yellow (Yellow); Glucose,Urine (UA) 30 mg/dL (Normal); Ketones,Urine Trace mg/dL (Negative); Leukocyte Esterase,Urine Large (Negative); Nitrite,Urine Negative (Negative); PH,Urine 5.5 pH Units (5.0-8.0); Protein,Urine 100 mg/dL (Neg-Trace); RBC,Urine 15-30 per hpf (0-3); Squamous Epithelial Cell,Urine Moderate per hpf (None-Few); Transitional Epi Cells,Urine Few per hpf (None-Few); Urobilinogen,Urine Normal (Normal); WBC,Urine TNTC per hpf (0-3)
[2022-02-12 15:29] LABS: Vancomycin,Random 10 mcg/mL
[2022-02-12 17:21] LABS: Creatine Kinase < 10 Units/L (30-223); Uric Acid 7.3 mg/dL (2.3-7.6)
[2022-02-12] MEDS ORDERED: *HR* OxyCODONE/APAP 5/325 TABLET PO PRN (17:59)
[2022-02-12] MEDS ORDERED: *HR* OxyCODONE Immed Rel 5 MG TABLET PO PRN (18:03)
[2022-02-13] MEDS: 0.9 % Sodium Chloride 1,000 ML IVC SCH ×4 (00:26→16:36)
[2022-02-13 01:39] LABS: Basophils % 0.2 %; Eosinophils % 0.5 %; Hematocrit 26.3 % (35.3-44.9); Hemoglobin 7.9 g/dL (11.5-15.4); Immature Granulocytes % 5.9 % (0-4); Lymphocytes # 0.3 K/mcL (0.6-4.6); Mean Corpuscular Hemoglobin 28.7 pg (28.0-33.3); Mean Corpuscular Volume 95.6 fL (83.0-100.0); Mean Platelet Volume 11.6 fL (9.4-12.4); Monocytes # 0.6 K/mcL (0.0-1.3); Monocytes % 12.6 %; Neutrophils # 3.3 K/mcL (1.6-8.9); Platelet Count 142 K/mcL (140-400); Red Blood Count 2.75 M/mcL (3.82-4.97); Red Cell Distribution Width 13.3 % (11.5-14.5); Segmented Neutrophils % 73.8 %; White Blood Count 4.4 K/mcL (4.3-11.1)
[2022-02-13 01:58] LABS: BUN/Creatinine Ratio 18 (6-26); Blood Urea Nitrogen 51 mg/dL (8-23); Calcium 8.6 mg/dL (8.6-10.3); Carbon Dioxide 17 mEq/L (23-29); Chloride 107 mEq/L (98-107); Glucose 229 mg/dL (70-105); Osmolality,Calculated 297 (280-300); Potassium 4.6 mEq/L (3.5-5.1); Sodium 133 mEq/L (136-145); eGFR For African Americans 20 (> 60); eGFR For Non-African Americans 17 (> 60)
[2022-02-13 03:16] LABS: Platelet Estimate Normal (Normal)
[2022-02-13] MEDS: Piperacillin/Tazobactam 3.375 GM in 0.9 % Sodium Chloride Mini Bag 100 ML IVPB SCH ×2 (03:39→15:16)
[2022-02-13] MEDS: Insulin LISPRO 300 UNITS/3 ML VIAL SUBQ SCH ×4 (07:31→20:31)
[2022-02-13] MEDS ORDERED: Bupivacaine-MPF 0.25% 10 ML VIAL ONE (07:43)
[2022-02-13] MEDS ORDERED: Ondansetron 4 MG/2 ML VIAL ONE (07:44)
[2022-02-13] MEDS ORDERED: Lidocaine 1% 20 ML MDV ONE (07:44)
[2022-02-13] MEDS ORDERED: Lidocaine -MPF 2% 2 ML VIAL ONE (07:44)
[2022-02-13] MEDS ORDERED: *HR* FentaNYL (PF) 100 MCG/2 ML VIAL ONE (07:45)
[2022-02-13] MEDS ORDERED: *HR* FentaNYL (PF) 100 MCG/2 ML VIAL IVP PRN (07:46)
[2022-02-13] MEDS ORDERED: Vancomycin 1,000 MG VIAL ONE (08:27)
[2022-02-13] MEDS: Mycophenolate Sodium (DR) 180 MG TABLET.DR PO SCH ×2 (09:08→20:40)
[2022-02-13] MEDS: (Tacrolimus [Prograf] 1 MG Capsule) PO SCH (09:08)
[2022-02-13] MEDS ORDERED: Melatonin 3 MG TABLET PO PRN (10:06)
[2022-02-13] MEDS ORDERED: *HR* Dextrose 50 % in Water (Syg) 50 ML SYRINGE IVP PRN (10:06)
[2022-02-13] MEDS ORDERED: Naloxone 0.4 MG/ML INJ IVP PRN (10:06)
[2022-02-13] MEDS ORDERED: *HR* OxyCODONE Immed Rel 5 MG TABLET PO PRN (10:06)
[2022-02-13] MEDS ORDERED: Mag Hydrox/Al Hydrox/Simeth 30 ML UDC PO PRN (10:06)
[2022-02-13] MEDS ORDERED: Ondansetron ODT 4 MG TAB.RAPDIS SL PRN (10:06)
[2022-02-13] MEDS ORDERED: Dextrose Gel 15 GM/37.5 ML TUBE PO PRN ×2 (10:06)
[2022-02-13] MEDS ORDERED: Gadolinium Contrast Agent (WT Based) IV PRN (10:06)
[2022-02-13] MEDS ORDERED: Perflutren Lipid Microsphere 1.3 ML in 0.9 % Sodium Chloride 8.7 ML IVP PRN (10:06)
[2022-02-13] MEDS ORDERED: D5% in Water 1,000 ML IVC PRN (10:06)
[2022-02-13] MEDS: Tacrolimus [Prograf] 1 MG Capsule PO SCH (20:58)
[2022-02-14 01:54] LABS: Iron < 10 mcg/dL (50-170); Transferrin 116 mg/dL (203-362)
[2022-02-14] MEDS: 0.9 % Sodium Chloride 1,000 ML IVC SCH ×3 (02:05→18:07)
[2022-02-14] MEDS: Piperacillin/Tazobactam 3.375 GM in 0.9 % Sodium Chloride Mini Bag 100 ML IVPB SCH ×2 (02:06→17:59)
[2022-02-14 03:35] LABS: Protein/Creatinine Ratio,Urine 0.89 mg/mg (0.00-0.20); Sodium, Urine 42.9 mEq/L
[2022-02-14 05:24] LABS: Basophils % 0.2 %; Eosinophils % 0.7 %; Hematocrit 23.9 % (35.3-44.9); Hemoglobin 7.1 g/dL (11.5-15.4); Immature Granulocytes % 8.4 % (0-4); Lymphocytes # 0.4 K/mcL (0.6-4.6); Lymphocytes % 9.8 %; Mean Corpuscular HGB Conc 29.7 g/dL (31.6-35.5); Mean Corpuscular Hemoglobin 28.7 pg (28.0-33.3); Mean Corpuscular Volume 96.8 fL (83.0-100.0); Mean Platelet Volume 11.4 fL (9.4-12.4); Monocytes # 0.6 K/mcL (0.0-1.3); Monocytes % 12.9 %; Platelet Count 138 K/mcL (140-400); Red Blood Count 2.47 M/mcL (3.82-4.97); Red Cell Distribution Width 13.3 % (11.5-14.5); White Blood Count 4.4 K/mcL (4.3-11.1)
[2022-02-14 05:41] LABS: BUN/Creatinine Ratio 18 (6-26); Blood Urea Nitrogen 45 mg/dL (8-23); Calcium 8.4 mg/dL (8.6-10.3); Carbon Dioxide 15 mEq/L (23-29); Chloride 110 mEq/L (98-107); Glucose 140 mg/dL (70-105); Osmolality,Calculated 290 (280-300); Potassium 4.4 mEq/L (3.5-5.1); Sodium 133 mEq/L (136-145); eGFR For African Americans 23 (> 60); eGFR For Non-African Americans 19 (> 60)
[2022-02-14 05:52] LABS: Hypochromasia Present (Not Present); Platelet Estimate Normal (Normal)
[2022-02-14] MEDS: Insulin LISPRO 300 UNITS/3 ML VIAL SUBQ SCH ×4 (07:25→20:39)
[2022-02-14 09:02] LABS: Creatine Kinase < 10 Units/L (30-223)
[2022-02-14] MEDS ORDERED: Iron Sucrose Complex 400 MG in 0.9 % Sodium Chloride 250 ML IVPB ONE (09:08)
[2022-02-14] MEDS: Mycophenolate Sodium (DR) 180 MG TABLET.DR PO SCH ×2 (09:11→20:15)
[2022-02-14] MEDS: Tacrolimus [Prograf] 1 MG Capsule PO SCH ×2 (09:11→20:17)
[2022-02-14] MEDS: DAPTOmycin 350 MG in 0.9 % Sodium Chloride 100 ML IVPB SCH (15:17)
[2022-02-15] MEDS ORDERED: 0.9 % Sodium Chloride Mini Bag 100 ML ONE (02:24)
[2022-02-15] MEDS: Piperacillin/Tazobactam 3.375 GM in 0.9 % Sodium Chloride Mini Bag 100 ML IVPB SCH ×2 (02:27→14:52)
[2022-02-15] MEDS: 0.9 % Sodium Chloride 1,000 ML IVC SCH ×3 (02:28→16:42)
[2022-02-15 03:17] LABS: Basophils % 0.5 %; Eosinophils # 0.1 K/mcL (0.0-0.6); Eosinophils % 1.4 %; Hematocrit 22.5 % (35.3-44.9); Hemoglobin 6.6 g/dL (11.5-15.4); Immature Granulocytes % 1.1 % (0-4); Lymphocytes # 0.5 K/mcL (0.6-4.6); Lymphocytes % 13.4 %; Mean Corpuscular HGB Conc 29.3 g/dL (31.6-35.5); Mean Corpuscular Hemoglobin 28.4 pg (28.0-33.3); Mean Platelet Volume 11.6 fL (9.4-12.4); Monocytes # 0.4 K/mcL (0.0-1.3); Monocytes % 11.2 %; Neutrophils # 2.7 K/mcL (1.6-8.9); Platelet Count 159 K/mcL (140-400); Red Blood Count 2.32 M/mcL (3.82-4.97); Red Cell Distribution Width 13.3 % (11.5-14.5); Segmented Neutrophils % 72.4 %; White Blood Count 3.7 K/mcL (4.3-11.1)
[2022-02-15 03:33] LABS: Calcium 8.2 mg/dL (8.6-10.3); Potassium 4.4 mEq/L (3.5-5.1)
[2022-02-15] MEDS: Insulin LISPRO 300 UNITS/3 ML VIAL SUBQ SCH ×4 (07:53→21:19)
[2022-02-15] MEDS: Aspirin 81 MG TAB.CHEW PO SCH (08:23)
[2022-02-15] MEDS: Mycophenolate Sodium (DR) 180 MG TABLET.DR PO SCH ×2 (08:23→21:17)
[2022-02-15] MEDS: Tacrolimus [Prograf] 1 MG Capsule PO SCH ×2 (08:24→21:20)
[2022-02-15] MEDS: DAPTOmycin 350 MG in 0.9 % Sodium Chloride 100 ML IVPB SCH (08:24)
[2022-02-15 19:35] LABS: Hematocrit 27.7 % (35.3-44.9); Hemoglobin 8.6 g/dL (11.5-15.4)
[2022-02-16] MEDS: 0.9 % Sodium Chloride 1,000 ML IVC SCH ×2 (04:43→16:18)
[2022-02-16] MEDS: Piperacillin/Tazobactam 3.375 GM in 0.9 % Sodium Chloride Mini Bag 100 ML IVPB SCH (04:43)
[2022-02-16 05:16] LABS: Basophils % 0.5 %; Eosinophils # 0.1 K/mcL (0.0-0.6); Eosinophils % 3.2 %; Hematocrit 26.9 % (35.3-44.9); Hemoglobin 8.3 g/dL (11.5-15.4); Lymphocytes # 0.5 K/mcL (0.6-4.6); Lymphocytes % 12.5 %; Mean Corpuscular HGB Conc 30.9 g/dL (31.6-35.5); Mean Corpuscular Hemoglobin 29.5 pg (28.0-33.3); Mean Corpuscular Volume 95.7 fL (83.0-100.0); Mean Platelet Volume 10.9 fL (9.4-12.4); Monocytes # 0.3 K/mcL (0.0-1.3); Monocytes % 8.5 %; Neutrophils # 2.8 K/mcL (1.6-8.9); Platelet Count 183 K/mcL (140-400); Red Blood Count 2.81 M/mcL (3.82-4.97); Red Cell Distribution Width 13.8 % (11.5-14.5); Segmented Neutrophils % 70.3 %
[2022-02-16 05:37] LABS: Calcium 8.6 mg/dL (8.6-10.3); Potassium 4.3 mEq/L (3.5-5.1)
[2022-02-16] MEDS: Mycophenolate Sodium (DR) 180 MG TABLET.DR PO SCH ×2 (07:55→20:41)
[2022-02-16] MEDS: Tacrolimus [Prograf] 1 MG Capsule PO SCH ×2 (07:56→20:55)
[2022-02-16] MEDS: Aspirin 81 MG TAB.CHEW PO SCH (07:56)
[2022-02-16] MEDS: Insulin LISPRO 300 UNITS/3 ML VIAL SUBQ SCH ×5 (07:58→20:44)
[2022-02-16] MEDS: DAPTOmycin 350 MG in 0.9 % Sodium Chloride 100 ML IVPB SCH (10:54)
[2022-02-16] MEDS ORDERED: cefTRIAXone 2,000 MG in 0.9 % Sodium Chloride 20 ML IVPB SCH (13:00)
[2022-02-16] MEDS: metroNIDAZOLE 500 MG TABLET PO SCH ×2 (14:08→20:41)
[2022-02-16] MEDS: Sodium Bicarbonate 150 MEQ in D5% in Water 1,000 ML IVC SCH (14:08)
[2022-02-17] MEDS: Sodium Bicarbonate 150 MEQ in D5% in Water 1,000 ML IVC SCH ×2 (02:12→11:25)
[2022-02-17 05:43] LABS: Basophils % 0.6 %; Eosinophils # 0.1 K/mcL (0.0-0.6); Eosinophils % 3.7 %; Hematocrit 28.4 % (35.3-44.9); Hemoglobin 8.9 g/dL (11.5-15.4); Immature Granulocytes % 2.5 % (0-4); Lymphocytes # 0.7 K/mcL (0.6-4.6); Lymphocytes % 18.6 %; Mean Corpuscular HGB Conc 31.3 g/dL (31.6-35.5); Mean Corpuscular Hemoglobin 29.3 pg (28.0-33.3); Mean Corpuscular Volume 93.4 fL (83.0-100.0); Mean Platelet Volume 10.8 fL (9.4-12.4); Monocytes # 0.3 K/mcL (0.0-1.3); Monocytes % 7.9 %; Neutrophils # 2.4 K/mcL (1.6-8.9); Platelet Count 218 K/mcL (140-400); Red Blood Count 3.04 M/mcL (3.82-4.97); Red Cell Distribution Width 13.4 % (11.5-14.5); Segmented Neutrophils % 66.7 %; White Blood Count 3.5 K/mcL (4.3-11.1)
[2022-02-17 06:01] LABS: Calcium 8.3 mg/dL (8.6-10.3); Potassium 4.1 mEq/L (3.5-5.1)
[2022-02-17 07:38] VITALS: BP 185/77; PULSE 73; TEMP 97.7; O2SAT 97
[2022-02-17] MEDS: metroNIDAZOLE 500 MG TABLET PO SCH (07:38)
[2022-02-17] MEDS: Aspirin 81 MG TAB.CHEW PO SCH (07:38)
[2022-02-17] MEDS: Mycophenolate Sodium (DR) 180 MG TABLET.DR PO SCH (07:39)
[2022-02-17] MEDS: Insulin LISPRO 300 UNITS/3 ML VIAL SUBQ SCH ×2 (07:40→11:24)
[2022-02-17] MEDS: Tacrolimus [Prograf] 1 MG Capsule PO SCH (08:03)
[2022-02-17] MEDS ORDERED: amLODIPine 5 MG TABLET PO SCH (09:00)
[2022-02-17] MEDS ORDERED: DAPTOmycin 350 MG in 0.9 % Sodium Chloride 100 ML IVPB SCH (10:00)
[2022-02-17 12:08] LABS: Adenovirus Not Detected (Not Detect); Bordetella Pertussis Not Detected (Not Detect); Chlamydophila pneumoniae Not Detected (Not Detect); Coronavirus 229E Not Detected (Not Detect); Coronavirus HKU1 Not Detected (Not Detect); Coronavirus NL63 Not Detected (Not Detect); Coronavirus OC43 Not Detected (Not Detect); Human Metapneumovirus Not Detected (Not Detect); Human Rhinovirus/Enterovirus Not Detected (Not Detect); Influenza A Subtype 2009 H1 Not Detected (Not Detect); Influenza B Not Detected (Not Detect); Mycoplasma pneumoniae Not Detected (Not Detect); Parainfluenza Virus 1 Not Detected (Not Detect); Parainfluenza Virus 2 Not Detected (Not Detect); Parainfluenza Virus 3 Not Detected (Not Detect); Parainfluenza Virus 4 Not Detected (Not Detect); Respiratory Syncytial Virus Not Detected (Not Detect); SARS-CoV-2 Not Detected (Not Detect)
== END 2022-02-17 12:15 | DRG 617 ==
LOC: EMEROOARM 11:36 → 3BNU 11:36 → SUATTDRO 17:59 → 3BNU 19:00 → SUATTDRO 02-12 17:17
PROVIDERS: ADMIT Student in an Organized Health Care Education/Training Program; ATTEND Internal Medicine